=== PATIENT | female | born 1940 | race Native Hawaiian/Other Pacific Islander ===

== ENCOUNTER 2016-12-24 22:16 | Emergency (ER) | payer MEDICARE, MEDICAID ==
--- NOTE | 2016-12-24 23:22 | C.PDOC ---
History Of Present Illness pt had a rash on her forehead for about 1 month. Pt just arrived from [place] yesterday. Possible due to hair dye. Has been putting cortisone cream for the last week or so, worsening the rash Time Seen by Provider: 12/24/16 23:22 Chief Complaint (Nursing): Abnormal Skin Integrity History Per: Patient History/Exam Limitations: no limitations Onset/Duration Of Symptoms: Days (30), Gradual Current Symptoms Are (Timing): Still Present Location Of Injury: Right: Face, Left: Face Quality Of Symptoms: Itching. denies: Painful Severity: Moderate Pain Scale Rating Of: 3 Recent travel outside of the [place]: No Additional History Per: Family Past Medical History Reviewed: Historical Data, Nursing Documentation, Vital Signs Vital Signs: Last Vital Signs Temp 98.3 F 12/24/16 22:21 Pulse 67 12/24/16 22:21 Resp 20 12/24/16 22:21 BP 168/89 H 12/24/16 22:21 Pulse Ox 99 12/24/16 23:36 - Medical History PMH: Arthritis, Asthma, CHF, HTN Family History: States: No Known Family Hx - Social History Hx Alcohol Use: No Hx Substance Use: No - Immunization History Hx Tetanus Toxoid Vaccination: No Hx Influenza Vaccination: No Hx Pneumococcal Vaccination: No Review Of Systems Constitutional: Negative for: Fever, Chills ENT: Positive for: Other (left ear lobe redness, ant tragus as well) Respiratory: Negative for: Shortness of Breath Skin: Positive for: Rash, Other (forehead, left ear) Neurological: Negative for: Weakness, Numbness Psych: Negative for: Anxiety Physical Exam - Physical Exam Appears: Non-toxic, No Acute Distress Skin: Warm, Rash (forehead erythematous rash, as well as left ear lobe and tragus) Head: Normacephalic, No Tenderness Eye(s): bilateral: Normal Inspection Nose: Normal Oral Mucosa: Moist Neck: Supple ED Course And Treatment - Laboratory Results Result Diagrams: 12/25/16 00:36 12/25/16 00:36 O2 Sat by Pulse Oximetry: 99 Pulse Ox Interpretation: Normal Reevaluation Time: 01:11 Reassessment Condition: Improved Disposition Counseled Patient/Family Regarding: Studies Performed, Diagnosis, Need For Followup, Rx Given - Disposition Referrals: Duane Jaquez MD [Staff Provider] - Disposition: HOME/ ROUTINE Disposition Time: 23:22 Condition: FAIR Additional Instructions: Please follow up with Dr Jaquez and referral for dermatologis Prescriptions: Prednisone [Deltasone] 20 mg PO DAILY #5 tablet Instructions: Contact Dermatitis (ED) - Clinical Impression Clinical Impression: Contact dermatitis
[2016-12-24] MEDS ORDERED: DiphenhydrAMINE 50 mg/ml Inj IVP STA (23:30)
[2016-12-25] MEDS ORDERED: DiphenhydrAMINE 50 mg/ml Inj ONE (00:23)
[2016-12-25 00:40] LABS: BASO % 0.7 % (0.0-2.0); EOS # 0.5 K/uL (0.0-0.7); EOS % 9.3 % (0.0-4.0); HEMATOCRIT 37.3 % (34.0-47.0); LYMPH # 1.5 K/uL (1.0-4.3); LYMPH % 28.5 % (20.0-40.0); MEAN CELL VOLUME 96.5 fL (81.0-99.0); MEAN CORPUSCULAR HGB CONC 33.2 g/dL (33.0-37.0); MONO # 0.5 K/uL (0.0-0.8); MONO % 8.8 % (0.0-10.0); WHITE BLOOD COUNT 5.2 K/uL (4.8-10.8)
[2016-12-25 00:50] LABS: POTASSIUM 3.3 mmol/L (3.6-5.2)
[2016-12-25 00:54] LABS: CALCIUM 9.4 mg/dl (8.6-10.4)
[2016-12-25 01:15] LABS: URINE BILIRUBIN NEGATIVE (NEGATIVE); URINE BLOOD NEGATIVE (NEGATIVE); URINE COLOR Straw (YELLOW); URINE GLUCOSE (UA) 1+ mg/dL (Normal); URINE KETONE NEGATIVE (NEGATIVE); URINE LEUKOCYTE ESTERASE NEG Leu/uL (Negative); URINE PROTEIN 1+ mg/dL (NEGATIVE); URINE UROBILINOGEN NORMAL mg/dL (0.2-1.0)
[2016-12-25 01:37] VITALS: BP 178/75; PULSE 71; RESP 18; TEMP 98.4; O2SAT 98
== END 2016-12-25 02:00 | disposition home or self-care (01) ==
LOC: C.ER 22:16
DX: L25.9 Unspecified contact dermatitis, unspecified cause (principal)
CPT/HCPCS: 80048; 81001; 85025; 96374; 96375; 99283; J1200; J2930

== ENCOUNTER 2017-06-14 13:30 | Inpatient (IN) | payer MEDICARE, MEDICAID ==
--- NOTE | 2017-06-14 15:09 | C.PDOC ---
History Of Present Illness 76 yr old female presents to the ER with complaints of 1 month history of SOB and mild chest discomfort. Patient states she saw her PMD Dr. Jaquez who instructed her to come to ER for further evaluation. Currently, patient states the SOB is when she lays flat. Patient denies history of DVT, PE, fever, chills , nausea, vomiting, headache, weakness or numbness. Time Seen by Provider: 06/14/17 14:26 Chief Complaint (Nursing): Shortness Of Breath History Per: Patient History/Exam Limitations: no limitations Onset/Duration Of Symptoms: Days (1 month) Past Medical History Reviewed: Historical Data, Nursing Documentation, Vital Signs Vital Signs: Last Vital Signs Temp 97.6 F 06/14/17 13:46 Pulse 74 06/14/17 13:46 Resp 20 06/14/17 15:01 BP 150/75 06/14/17 13:46 Pulse Ox 96 06/14/17 16:31 - Medical History PMH: Arthritis, Asthma, CHF, HTN Family History: States: No Known Family Hx - Social History Hx Alcohol Use: No Hx Substance Use: No - Immunization History Hx Tetanus Toxoid Vaccination: No Hx Influenza Vaccination: No Hx Pneumococcal Vaccination: No Review Of Systems Except As Marked, All Systems Reviewed And Found Negative. Constitutional: Negative for: Fever, Chills Cardiovascular: Positive for: Other ((+) Mild chest discomfort) Respiratory: Positive for: Shortness of Breath Gastrointestinal: Negative for: Nausea, Vomiting Neurological: Negative for: Weakness, Numbness, Headache Physical Exam - Physical Exam Appears: Non-toxic, No Acute Distress Skin: Normal Color, Warm, Dry, No Rash Head: Atraumatic, Normacephalic Oral Mucosa: Moist Chest: Symmetrical, No Tenderness Cardiovascular: Rhythm Regular, No Murmur Respiratory: Normal Breath Sounds, No Rales, No Rhonchi, No Stridor, No Wheezing Extremity: Normal ROM, No Swelling Neurological/Psych: Oriented x3, Normal Speech, Normal Motor ED Course And Treatment - Laboratory Results Result Diagrams: 06/14/17 15:13 06/14/17 15:13 ECG: Interpreted By Me, Viewed By Me ECG Rhythm: Sinus Rhythm ECG Interpretation: Normal Interpretation Of ECst degree AV block. LBBB. Left axis deviation. Rate From EC (BPM) O2 Sat by Pulse Oximetry: 96 (RA) Pulse Ox Interpretation: Normal - Radiology CXR: Interpreted by Me, Viewed By Me CXR Interpretation: Yes: Other ((+) Blunting of left CPA.) Medical Decision Making Medical Decision Making: PLAN: * CXR * EKG * Troponin * CBC * BNP Disposition Discussed With DrDianne: Duane Jaquez Doctor Will See Patient In The: Hospital Counseled Patient/Family Regarding: Diagnosis - Disposition Disposition: HOSPITALIZED Disposition Time: 16:23 Condition: FAIR Forms: Inveni (Greek) - POA Core Measure Indicators: Chest Pain - Clinical Impression Clinical Impression: Dyspnea, Chest pain - Scribe Statement The provider has reviewed the documentation as recorded by the Dionicioibe [place] Provider Attestation: All medical record entries made by the Dionicioibe were at my direction and personally dictated by me. I have reviewed the chart and agree that the record accurately reflects my personal performance of the history, physical exam, medical decision making, and the department course for this patient. I have also personally directed, reviewed, and agree with the discharge instructions and disposition.
[2017-06-14 15:20] LABS: BASO % 0.4 % (0.0-2.0); EOS # 0.3 K/uL (0.0-0.7); EOS % 3.9 % (0.0-4.0); HEMATOCRIT 38.3 % (34.0-47.0); LYMPH # 1.5 K/uL (1.0-4.3); LYMPH % 21.1 % (20.0-40.0); MEAN CELL VOLUME 95.5 fL (81.0-99.0); MEAN CORPUSCULAR HEMOGLOBIN 32.5 pg (27.0-31.0); MEAN PLATELET VOLUME 9.8 fL (7.2-11.7); MONO # 0.6 K/uL (0.0-0.8); MONO % 8.8 % (0.0-10.0); RED CELL DISTRIBUTION WIDTH 12.8 % (11.5-14.5); WHITE BLOOD COUNT 7.1 K/uL (4.8-10.8)
[2017-06-14 15:38] LABS: BILIRUBIN,TOTAL 0.9 mg/dL (0.2-1.3)
[2017-06-14 15:39] LABS: ALB/GLOB RATIO 1.6 (1.0-2.1); CALCIUM 9.7 mg/dl (8.6-10.4); TOTAL PROTEIN 7.4 g/dL (6.3-8.3)
[2017-06-14 15:50] LABS: TROPONIN I 0.046 ng/mL (0.00-0.120)
--- NOTE | 2017-06-14 16:49 | RAD ---
PROCEDURE: CHEST RADIOGRAPH, 1 VIEW HISTORY: chest pain COMPARISON: None available. FINDINGS: LUNGS: No consolidation. Clear lungs. Possible cystic emphysematous changes bordering the aortic knob PLEURA: No pneumothorax or pleural fluid seen. CARDIOVASCULAR: Minimal cardiomegaly left ventricular enlargement configuration. Calcified and tortuous thoracic aorta -comparison with prior studies recommended OSSEOUS STRUCTURES: Thoracic spondylosis right shoulder arthrosis VISUALIZED UPPER ABDOMEN: Normal. OTHER FINDINGS: None. IMPRESSION: No interval infiltrate or pulmonary venous significant congestion . No pleural effusion or pneumothorax. Cardiomegaly, tortuous/prominent calcified thoracic aorta - the prominence and tortuosity is of unknown chronicity. Direct comparison with prior outside studies is recommended to assess stability. Consider CT chest to evaluate the thoracic aortic if needed.
[2017-06-14] MEDS ORDERED: Home Med 1 UNIT (Atorvastatin [Lipitor] 10 MG) PO SCH (22:00)
[2017-06-15 04:48] LABS: BASO % 0.7 % (0.0-2.0); EOS # 0.4 K/uL (0.0-0.7); EOS % 7.4 % (0.0-4.0); HEMATOCRIT 37.3 % (34.0-47.0); LYMPH # 1.9 K/uL (1.0-4.3); LYMPH % 31.1 % (20.0-40.0); MEAN CELL VOLUME 94.9 fL (81.0-99.0); MEAN CORPUSCULAR HEMOGLOBIN 32.3 pg (27.0-31.0); MEAN PLATELET VOLUME 9.5 fL (7.2-11.7); MONO # 0.5 K/uL (0.0-0.8); MONO % 9.1 % (0.0-10.0); NRBC % 0.1 % (0.0-2.0); RED CELL DISTRIBUTION WIDTH 12.9 % (11.5-14.5)
[2017-06-15 04:55] LABS: POTASSIUM 3.3 mmol/L (3.6-5.2)
[2017-06-15 04:58] LABS: ALB/GLOB RATIO 1.1 (1.0-2.1); BILIRUBIN,TOTAL 0.9 mg/dL (0.2-1.3); TOTAL PROTEIN 7.7 g/dL (6.3-8.3)
[2017-06-15 04:59] LABS: CALCIUM 9.4 mg/dl (8.6-10.4)
--- NOTE | 2017-06-15 08:38 | CP.PCM.HP ---
History of Present Illness - History of Present Illness History of Present Illness: CC: chest pain 76 y/o male with CAD (had (+) stress test in 2016 - treated medically) and HTN. Patient having chest pressure every night x almost 1 month. Patient seen in office but went home. Advise stress test before going to [place]. Patient has chest pressure w/ mild SOB last night - went to ER. Present on Admission - Present on Admission Any Indicators Present on Admission: Yes History of DVT/PE: No History of Uncontrolled Diabetes: No Urinary Catheter: No Decubitus Ulcer Present: No Review of Systems - Review of Systems Systems not reviewed;Unavailable: Acuity of Condition - Constitutional Constitutional: Headache. absent: Fever, Lethargy, Malaise - EENT Eyes: absent: Change in Vision, Floaters, Sees Flashes Nose/Mouth/Throat: absent: Epistaxis, Nasal Trauma, Dysphagia, Mouth Pain - Breasts Breasts: absent: Change in Shape - Cardiovascular Cardiovascular: Chest Pain, Chest Pain at Rest, Palpitations. absent: Claudication, Edema, Leg Edema, Leg Ulcers, Pedal Edema - Respiratory Respiratory: absent: Cough, Hemoptysis, Stridor, Pain on Inspiration - Gastrointestinal Gastrointestinal: absent: Abdominal Pain, Bloating, Cramping, Early Satiety, Hematemesis - Genitourinary Genitourinary: Nocturia. absent: Difficulty Urinating, Dysuria, Urinary Urgency , Freq UTI, Bladder Distension - Reproductive: Female Reproductive:Female: Amenorrhea - Musculoskeletal Musculoskeletal: absent: Abnormal Gait, Atrophy, Back Pain, Limited Range of Motion, Myalgias, Neck Pain - Integumentary Integumentary: absent: Alopecia, Dry Skin, Pruritus, Rash, Swelling Past Patient History - Infectious Disease Hx of Infectious Diseases: None - Past Social History Smoking Status: Never Smoked - CARDIAC Hx Congestive Heart Failure: Yes Hx Hypertension: Yes - PULMONARY Hx Asthma: Yes - MUSCULOSKELETAL/RHEUMATOLOGICAL Hx Arthritis: Yes - PSYCHIATRIC Hx Substance Use: No - ANESTHESIA Hx Anesthesia: No Meds Allergies/Adverse Reactions: Allergies Allergy/AdvReac Type Severity Reaction Status Date / Time No Known Allergies Allergy Unverified 06/14/17 13:48 Physical Exam - Constitutional Appears: No Acute Distress - Head Exam Head Exam: ATRAUMATIC - Eye Exam Eye Exam: Normal appearance - ENT Exam ENT Exam: Mucous Membranes Moist. absent: Normal Exam, Normal External Ear Exam - Neck Exam Neck exam: Positive for: Full Rom. Negative for: Lymphadenopathy, Normal Inspection, Thyromegaly - Respiratory Exam Respiratory Exam: Clear to Auscultation Bilateral. absent: Rales, Rhonchi, Wheezes - Cardiovascular Exam Cardiovascular Exam: REGULAR RHYTHM, +S1, +S2, Systolic Murmur. absent: Gallop , JVD - GI/Abdominal Exam GI & Abdominal Exam: Soft. absent: Tenderness - Back Exam Back exam: absent: CVA tenderness (L) - Neurological Exam Neurological exam: Alert Results - Vital Signs Recent Vital Signs: Last Vital Signs Temp 97.8 F 06/15/17 07:51 Pulse 70 06/15/17 07:51 Resp 20 06/15/17 07:51 BP 147/72 06/15/17 07:51 Pulse Ox 95 06/15/17 07:51 - Labs Result Diagrams: 06/15/17 04:45 06/15/17 04:45 Labs: Laboratory Results - last 24 hr 06/14/17 06/14/17 06/14/17 15:13 15:13 23:20 WBC 7.1 RBC 4.01 Hgb 13.0 Hct 38.3 MCV 95.5 MCH 32.5 H MCHC 34.0 RDW 12.8 Plt Count 132 MPV 9.8 Neut % (Auto) 65.8 Lymph % (Auto) 21.1 [place] % (Auto) 8.8 Eos % (Auto) 3.9 Baso % (Auto) 0.4 Neut # 4.7 Lymph # 1.5 [place] # 0.6 Eos # 0.3 Baso # 0.0 Sodium 137 Potassium 4.0 Chloride 100 Carbon Dioxide 26 Anion Gap 15 BUN 30 H Creatinine 1.8 H Est GFR ( Amer) 33 Est GFR (Non-Af Amer) 27 Random Glucose 87 Calcium 9.7 Total Bilirubin 0.9 AST 40 H ALT 37 Alkaline Phosphatase 78 Total Creatine Kinase 86 CK-MB (Mass) 1.13 Troponin I 0.0460 Troponin I, Quant 0.0490 NT-Pro-B Natriuret Pep 1330 H Total Protein 7.4 Albumin 4.5 Globulin 2.9 Albumin/Globulin Ratio 1.6 06/15/17 06/15/17 06/15/17 04:45 04:45 06:55 WBC 6.0 RBC 3.93 Hgb 12.7 Hct 37.3 MCV 94.9 MCH 32.3 H MCHC 34.0 RDW 12.9 Plt Count 124 L MPV 9.5 Neut % (Auto) 51.7 Lymph % (Auto) 31.1 [place] % (Auto) 9.1 Eos % (Auto) 7.4 H Baso % (Auto) 0.7 Neut # 3.1 Lymph # 1.9 [place] # 0.5 Eos # 0.4 Baso # 0.0 Sodium 138 Potassium 3.3 L Chloride 104 Carbon Dioxide 22 Anion Gap 15 BUN 33 H Creatinine 1.4 H Est GFR ( Amer) 44 Est GFR (Non-Af Amer) 36 Random Glucose 95 Calcium 9.4 Total Bilirubin 0.9 AST 31 ALT 35 Alkaline Phosphatase 71 Total Creatine Kinase 81 CK-MB (Mass) 1.08 Troponin I Troponin I, Quant 0.0450 NT-Pro-B Natriuret Pep Total Protein 7.7 Albumin 4.1 Globulin 3.6 Albumin/Globulin Ratio 1.1 - EKG Data EKG Interpreted by: Myself Rate: Normal (complete ) Assessment & Plan - Assessment and Plan (Free Text) Assessment: Chest pain w/ CAD HTN, Hypokalemia K supplement; check Mg level Control BP cardio eval
[2017-06-15] MEDS ORDERED: Potassium Chloride 20 mEq ER Tab PO SCH (10:00)
[2017-06-15] MEDS: Potassium Chloride 20 mEq ER Tab PO SCH ×2 (10:33→17:52)
--- NOTE | 2017-06-15 13:25 | CT ---
CT chest without IV contrast Indication: Shortness of breath Technique: Contiguous axial images were obtained through the chest without intravenous contrast enhancement. Sagittal and coronal reconstructions were generated and reviewed. This CT exam was performed using 1 or more of the following dose reduction techniques: Automated exposure control, adjustment of the MAA and/or kV according to patient size, and/or use of iterative reconstruction technique. Radiation dose (DLP): 174.16 MGy-cm. Comparison: Chest x-ray performed 06/14/17 Findings: Visualized portions of the inferior thyroid gland appear unremarkable. The mediastinal and hilar vascular structures appear within normal limits. The heart appears within normal limits of size. Dense atherosclerotic calcifications of the aorta. Dense coronary artery calcifications. Multiple tiny nodular opacities several of which appear partially ground-glass noted in addition to regions of the alveolar opacities ; correlate clinically for infectious or inflammatory process. No focal consolidation. No pleural effusion. No pneumothorax. Limited visualization of the noncontrast upper abdomen demonstrates 2.4 cm low-density hepatic lesion, 10 HU consistent with a cyst. Additional too small to characterize hepatic hypodensities. Fatty atrophy of the pancreas. Degenerative changes of the spine. Impression: Multiple tiny nodular opacities (Less than 4 mm) several of which appear partially ground-glass noted in addition to regions of the alveolar opacities ; correlate clinically for infectious or inflammatory process. Recommend short-term follow-up to assess for complete resolution. 2.4 cm low-density hepatic lesion, 10 HU consistent with a cyst. Additional too small to characterize hepatic hypodensities. Fatty atrophy of the pancreas.
[2017-06-15] MEDS: Albuterol-Ipratrop 3 mg / 0.5 (3 ml) UD INH SCH ×2 (14:05→19:16)
--- NOTE | 2017-06-15 15:39 | CP.PCM.CON ---
History of Present Illness - History of Present Illness History of Present Illness: Pulmonology Consult Note for Dr. Nathan's Service Reason for Consult: " shortness of breath" HPI: 76F with PMHx HTN, HLD, Asthma presented to the ED with shortness of breath x 1 month. Patient reports for the past month, she has been having difficulty laying down flat. She feels SOB and as if she is choking. Denied any SOB when ambulating or climbing up stairs. She denies any swelling of her lower extremities. She now sleeps at a 45 degree angle to alleviate her symptoms at night. Patient had a + nuclear stress test last year - which she is being managed for medically. Denied recent travel, sick contacts, fever, chills, headache, chest pain, abdominal pain, n/v/d/c, or urinary symptoms. PMHx: HTN, HLD, Asthma, 2016 + stress test - medically managed PSHx: Denied Meds: As per MAR, confirmed and reviewed All: NKDA SHx: Denied tobacco, ETOH, or illicit drug use FHx: Unremarkable Past Patient History - Past Social History Smoking Status: Never Smoked - CARDIAC Hx Congestive Heart Failure: Yes Hx Hypertension: Yes - PULMONARY Hx Asthma: Yes - MUSCULOSKELETAL/RHEUMATOLOGICAL Hx Arthritis: Yes - PSYCHIATRIC Hx Substance Use: No - ANESTHESIA Hx Anesthesia: No Meds Allergies/Adverse Reactions: Allergies Allergy/AdvReac Type Severity Reaction Status Date / Time No Known Allergies Allergy Unverified 06/14/17 13:48 - Medications Medications: Current Medications Albuterol/Ipratropium (Duoneb 3 Mg/0.5 Mg (3 Ml) Ud) 3 ml INH RQ6 [facility] Amlodipine Besylate (Norvasc) 10 mg PO HS [facility] Last Admin: 06/14/17 22:33 Dose: 10 mg Heparin Sodium (Porcine) (Heparin) 5,000 units SC Q12 VIANCA Last Admin: 06/15/17 10:32 Dose: 5,000 units Losartan Potassium (Cozaar) 50 mg PO DAILY [facility] Last Admin: 06/15/17 10:33 Dose: 50 mg Potassium Chloride (K-Dur 20 Meq Er Tab) 20 meq PO BID VIANCA Stop: 06/18/17 10:01 Last Admin: 06/15/17 10:33 Dose: 20 meq Rosuvastatin Calcium (Crestor) 5 mg PO HS [facility] Last Admin: 06/14/17 22:33 Dose: 5 mg Physical Exam - Constitutional Appears: No Acute Distress - Head Exam Head Exam: NORMAL INSPECTION, NORMOCEPHALIC - Eye Exam Eye Exam: EOMI, Normal appearance, PERRL Pupil Exam: NORMAL ACCOMODATION - ENT Exam ENT Exam: Mucous Membranes Moist - Neck Exam Neck exam: Positive for: Normal Inspection - Respiratory Exam Respiratory Exam: Rales (L> R) - Cardiovascular Exam Cardiovascular Exam: REGULAR RHYTHM - GI/Abdominal Exam GI & Abdominal Exam: Normal Bowel Sounds, Soft. absent: Distended, Tenderness - Extremities Exam Extremities exam: Positive for: normal inspection, pedal pulses present. Negative for: pedal edema, tenderness - Neurological Exam Neurological exam: Alert, CN II-XII Intact, Oriented x3 Results - Vital Signs Recent Vital Signs: Last Vital Signs Temp 97.8 F 06/15/17 13:32 Pulse 69 06/15/17 13:32 Resp 18 06/15/17 13:32 BP 162/52 H 06/15/17 13:53 Pulse Ox 98 06/15/17 13:32 - Labs Result Diagrams: 06/15/17 04:45 06/15/17 04:45 Labs: Laboratory Results - last 24 hr 06/14/17 06/14/17 06/14/17 15:13 15:13 23:20 WBC 7.1 RBC 4.01 Hgb 13.0 Hct 38.3 MCV 95.5 MCH 32.5 H MCHC 34.0 RDW 12.8 Plt Count 132 MPV 9.8 Neut % (Auto) 65.8 Lymph % (Auto) 21.1 [place] % (Auto) 8.8 Eos % (Auto) 3.9 Baso % (Auto) 0.4 Neut # 4.7 Lymph # 1.5 [place] # 0.6 Eos # 0.3 Baso # 0.0 D-Dimer, Quantitative Sodium 137 Potassium 4.0 Chloride 100 Carbon Dioxide 26 Anion Gap 15 BUN 30 H Creatinine 1.8 H Est GFR ( Amer) 33 Est GFR (Non-Af Amer) 27 Random Glucose 87 Calcium 9.7 Magnesium Total Bilirubin 0.9 AST 40 H ALT 37 Alkaline Phosphatase 78 Total Creatine Kinase 86 CK-MB (Mass) 1.13 Troponin I 0.0460 Troponin I, Quant 0.0490 NT-Pro-B Natriuret Pep 1330 H Total Protein 7.4 Albumin 4.5 Globulin 2.9 Albumin/Globulin Ratio 1.6 06/15/17 06/15/17 06/15/17 04:45 04:45 06:55 WBC 6.0 RBC 3.93 Hgb 12.7 Hct 37.3 MCV 94.9 MCH 32.3 H MCHC 34.0 RDW 12.9 Plt Count 124 L MPV 9.5 Neut % (Auto) 51.7 Lymph % (Auto) 31.1 [place] % (Auto) 9.1 Eos % (Auto) 7.4 H Baso % (Auto) 0.7 Neut # 3.1 Lymph # 1.9 [place] # 0.5 Eos # 0.4 Baso # 0.0 D-Dimer, Quantitative Sodium 138 Potassium 3.3 L Chloride 104 Carbon Dioxide 22 Anion Gap 15 BUN 33 H Creatinine 1.4 H Est GFR ( Amer) 44 Est GFR (Non-Af Amer) 36 Random Glucose 95 Calcium 9.4 Magnesium Total Bilirubin 0.9 AST 31 ALT 35 Alkaline Phosphatase 71 Total Creatine Kinase 81 CK-MB (Mass) 1.08 Troponin I Troponin I, Quant 0.0450 NT-Pro-B Natriuret Pep Total Protein 7.7 Albumin 4.1 Globulin 3.6 Albumin/Globulin Ratio 1.1 06/15/17 06/15/17 09:40 12:27 WBC RBC Hgb Hct MCV MCH MCHC RDW Plt Count MPV Neut % (Auto) Lymph % (Auto) [place] % (Auto) Eos % (Auto) Baso % (Auto) Neut # Lymph # [place] # Eos # Baso # D-Dimer, Quantitative 499 H Sodium Potassium Chloride Carbon Dioxide Anion Gap BUN Creatinine Est GFR ( Amer) Est GFR (Non-Af Amer) Random Glucose Calcium Magnesium 1.8 Total Bilirubin AST ALT Alkaline Phosphatase Total Creatine Kinase CK-MB (Mass) Troponin I Troponin I, Quant NT-Pro-B Natriuret Pep Total Protein Albumin Globulin Albumin/Globulin Ratio Assessment & Plan - Assessment and Plan (Free Text) Plan: Dyspnea Most likely Secondary to New Onset CHF No JVD, no +S3 noted, BL lower extremity swelling BNP:1330 CXR: No interval infiltrate or pulmonary venous significant congestion. No pleural effusion or pneumothorax. Cardiomegaly, tortuous/prominent calcified thoracic aorta - the prominence and tortuosity is of unknown chronicity. Direct comparison with prior outside studies is recommended to assess stability. Consider CT chest to evaluate the thoracic aortic if needed. Chest CT w/o: Multiple tiny nodular opacities (Less than 4 mm) several of which appear partially ground-glass noted in addition to regions of the alveolar opacities ; correlate clinically for infectious or inflammatory process. Recommend short-term follow-up to assess for complete resolution. 2.4 cm low- density hepatic lesion, 10 HU consistent with a cyst. Additional too small to characterize hepatic hypodensities. Fatty atrophy of the pancreas. F/U ECHO, procal, mycoplasma, rapid flu, legionella, strep pneumo Duonebs Elevated D Dimer D-dimer- 500 Not tachycardic EKst degree AV block. LBBB. Left axis deviation During to renal function: VQ Scan ordered to r/o PE CHRISTOPHE Baseline BUN/CRE: 30/1.2 with GFR 43 On admission BUN/CRE; 33/1.4 GFR 36 S/P lasix 40mg IVP x2 Hx HTN Hx HLD Hx Asthma DW Solo Cordero DO, PGY-1
--- NOTE | 2017-06-15 17:30 | NM ---
COMPARISON: Comparison is made to previous same-day CT of the chest without contrast TECHNIQUE: 7.8 mCi technetium 99-m Xe-133 Gas. 3.8 mCI technetium 99-m MAA administered intravenously. FINDINGS: VENTILATION COMPONENT: Heterogeneous ventilation seen especially at the upper lobes. No evidence of significant retention of the radiotracer in the lungs. PERFUSION COMPONENT: Heterogeneous profusion with small nonsegmental foci of matching perfusion defects at the upper lobes. IMPRESSION: Lowprobability ventilation perfusion scan for pulmonary embolism.
--- NOTE | 2017-06-15 22:35 | CP.PCM.CON ---
History of Present Illness - History of Present Illness History of Present Illness: CC: chest pain HPI: 76 yr old female presents to the ER with complaints of 1 month history of SOB and mild chest discomfort worst at night when lying in bed. Chest pain was described as burning type in nature. Patient states she saw her PMD who instructed her to come to ER for further evaluation. EKG revealed sinus rhythm w/ LBBB. Review of Systems - Constitutional Constitutional: Weakness - EENT Eyes: absent: Change in Vision Nose/Mouth/Throat: absent: Epistaxis, Nasal Discharge - Cardiovascular Cardiovascular: Chest Pain, Dyspnea on Exertion. absent: Leg Edema, Pedal Edema - Respiratory Respiratory: Dyspnea on Exertion. absent: Chest Congestion, Pain with Coughing - Gastrointestinal Gastrointestinal: absent: Constipation, Diarrhea - Genitourinary Genitourinary: absent: Difficulty Urinating, Urinary Incontinence - Musculoskeletal Musculoskeletal: absent: Abnormal Gait, Muscle Weakness - Neurological Neurological: absent: Dizziness, Frequent Falls - Endocrine Endocrine: absent: Deepening of Voice Past Patient History - Infectious Disease Hx of Infectious Diseases: None - Past Medical History & Family History Past Medical History?: Yes - Past Social History Smoking Status: Never Smoked - CARDIAC Hx Congestive Heart Failure: Yes Hx Hypertension: Yes - PULMONARY Hx Asthma: Yes - NEUROLOGICAL Hx Neurological Disorder: No - HEENT Hx Cataracts: Yes (both eyes ) - RENAL Hx Chronic Kidney Disease: No - ENDOCRINE/METABOLIC Hx Endocrine Disorders: No - HEMATOLOGICAL/ONCOLOGICAL Hx Blood Disorders: No - INTEGUMENTARY Hx Dermatological Problems: No - MUSCULOSKELETAL/RHEUMATOLOGICAL Hx Arthritis: Yes - GASTROINTESTINAL Hx Constipation: Yes (2days) - GENITOURINARY/GYNECOLOGICAL Hx Genitourinary Disorders: No - PSYCHIATRIC Hx Substance Use: No - SURGICAL HISTORY Other/Comment: right leg Vein stripping years ago - ANESTHESIA Hx Anesthesia: No Meds Allergies/Adverse Reactions: Allergies Allergy/AdvReac Type Severity Reaction Status Date / Time No Known Allergies Allergy Unverified 06/14/17 13:48 - Medications Medications: Current Medications Albuterol/Ipratropium (Duoneb 3 Mg/0.5 Mg (3 Ml) Ud) 3 ml INH RQ6 [facility] Last Admin: 06/15/17 19:16 Dose: 3 ml Amlodipine Besylate (Norvasc) 10 mg PO HS [facility] Last Admin: 06/15/17 21:23 Dose: 10 mg Clopidogrel Bisulfate (Plavix) 75 mg PO DAILY [facility] Heparin Sodium (Porcine) (Heparin) 5,000 units SC Q12 [facility] Last Admin: 06/15/17 21:24 Dose: 5,000 units Losartan Potassium (Cozaar) 50 mg PO DAILY [facility] Last Admin: 06/15/17 10:33 Dose: 50 mg Potassium Chloride (K-Dur 20 Meq Er Tab) 20 meq PO BID [facility] Stop: 06/18/17 10:01 Last Admin: 06/15/17 17:52 Dose: 20 meq Rosuvastatin Calcium (Crestor) 5 mg PO HS [facility] Last Admin: 06/15/17 21:23 Dose: 5 mg Physical Exam - Head Exam Head Exam: NORMAL INSPECTION - Eye Exam Eye Exam: Scleral icterus - ENT Exam ENT Exam: Mucous Membranes Moist - Neck Exam Neck exam: Positive for: Full Rom, Lymphadenopathy - Respiratory Exam Respiratory Exam: Decreased Breath Sounds, NORMAL BREATHING PATTERN - Cardiovascular Exam Cardiovascular Exam: REGULAR RHYTHM - GI/Abdominal Exam GI & Abdominal Exam: Normal Bowel Sounds, Soft. absent: Tenderness - Exam Speculum exam: Erythema - Extremities Exam Extremities exam: Positive for: calf tenderness, pedal edema - Neurological Exam Neurological exam: Alert, CN II-XII Intact Results - Vital Signs Recent Vital Signs: Last Vital Signs Temp 97.8 F 06/15/17 13:32 Pulse 80 06/15/17 19:21 Resp 18 06/15/17 15:17 BP 162/52 H 06/15/17 13:53 Pulse Ox 98 06/15/17 13:32 - Labs Result Diagrams: 06/15/17 04:45 06/15/17 04:45 Labs: Laboratory Results - last 24 hr 06/14/17 06/15/17 06/15/17 23:20 04:45 04:45 WBC 6.0 RBC 3.93 Hgb 12.7 Hct 37.3 MCV 94.9 MCH 32.3 H MCHC 34.0 RDW 12.9 Plt Count 124 L MPV 9.5 Neut % (Auto) 51.7 Lymph % (Auto) 31.1 [place] % (Auto) 9.1 Eos % (Auto) 7.4 H Baso % (Auto) 0.7 Neut # 3.1 Lymph # 1.9 [place] # 0.5 Eos # 0.4 Baso # 0.0 D-Dimer, Quantitative Sodium 138 Potassium 3.3 L Chloride 104 Carbon Dioxide 22 Anion Gap 15 BUN 33 H Creatinine 1.4 H Est GFR ( Amer) 44 Est GFR (Non-Af Amer) 36 Random Glucose 95 Calcium 9.4 Magnesium Total Bilirubin 0.9 AST 31 ALT 35 Alkaline Phosphatase 71 Total Creatine Kinase 86 CK-MB (Mass) 1.13 Troponin I, Quant 0.0490 Total Protein 7.7 Albumin 4.1 Globulin 3.6 Albumin/Globulin Ratio 1.1 06/15/17 06/15/17 06/15/17 06:55 09:40 12:27 WBC RBC Hgb Hct MCV MCH MCHC RDW Plt Count MPV Neut % (Auto) Lymph % (Auto) [place] % (Auto) Eos % (Auto) Baso % (Auto) Neut # Lymph # [place] # Eos # Baso # D-Dimer, Quantitative 499 H Sodium Potassium Chloride Carbon Dioxide Anion Gap BUN Creatinine Est GFR ( Amer) Est GFR (Non-Af Amer) Random Glucose Calcium Magnesium 1.8 Total Bilirubin AST ALT Alkaline Phosphatase Total Creatine Kinase 81 CK-MB (Mass) 1.08 Troponin I, Quant 0.0450 Total Protein Albumin Globulin Albumin/Globulin Ratio Assessment & Plan - Assessment and Plan (Free Text) Assessment: Chest pain? DDx : ACS GERD HTN Renal insufficiency Low K+ Plan: Monitor and correct lytes Consider cath Agree w/ meds
[2017-06-16] MEDS: Albuterol-Ipratrop 3 mg / 0.5 (3 ml) UD INH SCH ×4 (01:06→19:48)
--- NOTE | 2017-06-16 10:14 | CARD ---
APPROVED REPORT EKG Measurement Heart [id number] <Conclusion> Sinus rhythm with 1st degree AV block Left axis deviation Left bundle branch block Abnormal ECG
[2017-06-16] MEDS: Potassium Chloride 20 mEq ER Tab PO SCH ×2 (11:02→18:45)
[2017-06-16] MEDS: Ranolazine 500 mg Extended Release Tablets PO SCH ×2 (11:02→18:45)
[2017-06-16] MEDS: Metoprolol Succinate 25 mg XL Tab PO SCH (11:02)
--- NOTE | 2017-06-16 14:55 | CP.PCM.PN ---
Subjective - Date & Time of Evaluation Date of Evaluation: 06/16/17 Time of Evaluation: 14:52 - Subjective Subjective: S: feels better. No SOB, chestpain, fever. Objective - Vital Signs/Intake and Output Vital Signs (last 24 hours): Temp Pulse Resp BP Pulse Ox 97.5 F L 72 20 147/76 96 06/16/17 07:25 06/16/17 09:00 06/16/17 07:25 06/16/17 07:25 06/16/17 07:25 - Medications Medications: Current Medications Albuterol/Ipratropium (Duoneb 3 Mg/0.5 Mg (3 Ml) Ud) 3 ml INH RQ6 [facility] Last Admin: 06/16/17 13:05 Dose: 3 ml Aspirin (Ecotrin) 81 mg PO DAILY [facility] Last Admin: 06/16/17 11:02 Dose: 81 mg Clopidogrel Bisulfate (Plavix) 75 mg PO DAILY [facility] Last Admin: 06/16/17 11:02 Dose: 75 mg Heparin Sodium (Porcine) (Heparin) 5,000 units SC Q12 [facility] Last Admin: 06/16/17 11:03 Dose: 5,000 units Losartan Potassium (Cozaar) 50 mg PO DAILY [facility] Last Admin: 06/16/17 11:03 Dose: 50 mg Metoprolol Succinate (Toprol Xl) 25 mg PO DAILY [facility] Last Admin: 06/16/17 11:02 Dose: 25 mg Potassium Chloride (K-Dur 20 Meq Er Tab) 20 meq PO BID [facility] Stop: 06/18/17 10:01 Last Admin: 06/16/17 11:02 Dose: 20 meq Ranolazine (Ranexa) 500 mg PO BID [facility] Last Admin: 06/16/17 11:02 Dose: 500 mg Rosuvastatin Calcium (Crestor) 5 mg PO HS [facility] Last Admin: 06/15/17 21:23 Dose: 5 mg - Labs Labs: 06/15/17 04:45 06/15/17 04:45 - Constitutional Appears: No Acute Distress - Head Exam Head Exam: NORMOCEPHALIC - Eye Exam Eye Exam: Normal appearance - ENT Exam ENT Exam: Normal Exam - Neck Exam Neck Exam: Normal Inspection - Respiratory Exam Respiratory Exam: NORMAL BREATHING PATTERN - Cardiovascular Exam Cardiovascular Exam: REGULAR RHYTHM - GI/Abdominal Exam GI & Abdominal Exam: Soft - Rectal Exam Rectal Exam: Deferred - Extremities Exam Extremities Exam: Normal Inspection Assessment and Plan (1) CHF (congestive heart failure) Status: Acute (2) HTN (hypertension) Assessment & Plan: A/P: Continue medications. Appreciate Dr. Nathan and Mer notes. VQ scan low probability Status: Acute
--- NOTE | 2017-06-16 16:25 | CARD ---
APPROVED REPORT EXAM: Two-dimensional and M-mode echocardiogram with Doppler and color Doppler. Other Information Quality : GoodRhythm : INDICATION Dyspnea Congestive Heart Failure COPD 2D DIMENSIONS IVSd1.7 (0.7-1.1cm)LVDd3.7 (3.9-5.9cm) PWd1.4 (0.7-1.1cm)LVDs2.6 (2.5-4.0cm) FS (%) 31.3 %LVEF (%)59.9 (>50%) M-Mode DIMENSIONS Left Atrium (MM)2.88 (2.5-4.0cm)Aortic Root3.63 (2.2-3.7cm) Aortic Cusp Exc.1.88 (1.5-2.0cm) Aortic Valve AI P 1/2 [id number] Mitral Valve E/A ratio0.0 TDI E/Lateral E'0.0E/Medial E'0.0 Tricuspid Valve TR Peak [id number]/sTR Peak Gr.[id number] LEFT VENTRICLE The left ventricle is normal size. There is mild to moderate concentric left ventricular hypertrophy. Left ventricle systolic function is normal. The Ejection Fraction is 55-60%. There is normal LV segmental wall motion. Tissue Doppler imaging reveals abnormal left ventricular diastolic dysfunction. No left ventricle thrombus noted on this study. RIGHT VENTRICLE The right ventricle is normal size. There is normal right ventricular wall thickness. The right ventricular systolic function is normal. ATRIA The left atrium size is normal. The right atrium size is normal. The interatrial septum is intact with no evidence for an atrial septal defect. AORTIC VALVE The aortic valve is normal in structure. There is moderate aortic regurgitation. There is no aortic valvular stenosis. There is no aortic valvular vegetation. MITRAL VALVE The mitral valve is normal in structure. There is no evidence of mitral valve prolapse. There is no mitral valve stenosis. Mitral regurgitation is trace to mild. TRICUSPID VALVE The tricuspid valve is normal in structure. There is trace tricuspid regurgitation. Right ventricular systolic pressure is estimated at less than 30 mmHg. There is no pulmonary hypertension. PULMONIC VALVE The pulmonic valve is not well visualized. There is mild to moderate pulmonic valvular regurgitation. GREAT VESSELS The aortic root is normal in size. PERICARDIAL EFFUSION There is no significant pericardial effusion. <Conclusion> Left ventricle systolic function is normal. The Ejection Fraction is 55-60%. Diastolic dysfunction. Hypertensive heart disease. There is moderate aortic regurgitation. Mitral regurgitation is trace to mild. There is trace tricuspid regurgitation. There is no pulmonary hypertension. There is mild to moderate pulmonic valvular regurgitation.
[2017-06-16 18:04] LABS: PROCALCITONIN SERUM 0.08 NG/ML (0.19-0.49)
[2017-06-16 18:18] LABS: LEGIONELLA AG URINE NEGATIVE (NEGATIVE)
[2017-06-17] MEDS: Albuterol-Ipratrop 3 mg / 0.5 (3 ml) UD INH SCH ×4 (01:24→19:35)
[2017-06-17] MEDS: Metoprolol Succinate 25 mg XL Tab PO SCH (09:12)
[2017-06-17] MEDS: Potassium Chloride 20 mEq ER Tab PO SCH ×2 (09:13→18:00)
[2017-06-17] MEDS: Ranolazine 500 mg Extended Release Tablets PO SCH ×2 (09:13→18:00)
--- NOTE | 2017-06-17 14:23 | CP.PCM.PN ---
Objective - Vital Signs/Intake and Output Vital Signs (last 24 hours): Temp Pulse Resp BP Pulse Ox 97.7 F 61 18 129/60 98 06/17/17 07:30 06/17/17 07:30 06/17/17 07:30 06/17/17 07:30 06/17/17 07:30 - Medications Medications: Current Medications Albuterol/Ipratropium (Duoneb 3 Mg/0.5 Mg (3 Ml) Ud) 3 ml INH RQ6 [facility] Last Admin: 06/17/17 13:52 Dose: 3 ml Aspirin (Ecotrin) 81 mg PO DAILY [facility] Last Admin: 06/17/17 09:13 Dose: 81 mg Clopidogrel Bisulfate (Plavix) 75 mg PO DAILY [facility] Last Admin: 06/17/17 09:12 Dose: 75 mg Heparin Sodium (Porcine) (Heparin) 5,000 units SC Q12 [facility] Last Admin: 06/17/17 09:13 Dose: 5,000 units Losartan Potassium (Cozaar) 50 mg PO DAILY [facility] Last Admin: 06/17/17 09:12 Dose: 50 mg Metoprolol Succinate (Toprol Xl) 25 mg PO DAILY [facility] Last Admin: 06/17/17 09:12 Dose: 25 mg Potassium Chloride (K-Dur 20 Meq Er Tab) 20 meq PO BID [facility] Stop: 06/18/17 10:01 Last Admin: 06/17/17 09:13 Dose: 20 meq Ranolazine (Ranexa) 500 mg PO BID [facility] Last Admin: 06/17/17 09:13 Dose: 500 mg Rosuvastatin Calcium (Crestor) 5 mg PO HS [facility] Last Admin: 06/16/17 21:32 Dose: 5 mg - Labs Labs: 06/15/17 04:45 06/15/17 04:45
[2017-06-17 17:11] VITALS: RESP 20
--- NOTE | 2017-06-17 20:09 | CP.PCM.PN ---
Subjective - Date & Time of Evaluation Date of Evaluation: 06/16/17 Time of Evaluation: 07:45 - Subjective Subjective: less atypical chest discomfort mild sob renal trops Objective - Vital Signs/Intake and Output Vital Signs (last 24 hours): Temp Pulse Resp BP Pulse Ox 99.1 F 60 20 155/68 H 97 06/17/17 15:20 06/17/17 16:00 06/17/17 15:20 06/17/17 15:20 06/17/17 15:20 Intake and Output: 06/17/17 06/18/17 18:59 06:59 Intake Total 600 Balance 600 - Medications Medications: Current Medications Albuterol/Ipratropium (Duoneb 3 Mg/0.5 Mg (3 Ml) Ud) 3 ml INH RQ6 [facility] Last Admin: 06/17/17 19:35 Dose: 3 ml Aspirin (Ecotrin) 81 mg PO DAILY [facility] Last Admin: 06/17/17 09:13 Dose: 81 mg Clopidogrel Bisulfate (Plavix) 75 mg PO DAILY [facility] Last Admin: 06/17/17 09:12 Dose: 75 mg Heparin Sodium (Porcine) (Heparin) 5,000 units SC Q12 [facility] Last Admin: 06/17/17 09:13 Dose: 5,000 units Losartan Potassium (Cozaar) 50 mg PO DAILY [facility] Last Admin: 06/17/17 09:12 Dose: 50 mg Metoprolol Succinate (Toprol Xl) 25 mg PO DAILY [facility] Last Admin: 06/17/17 09:12 Dose: 25 mg Potassium Chloride (K-Dur 20 Meq Er Tab) 20 meq PO BID [facility] Stop: 06/18/17 10:01 Last Admin: 06/17/17 18:00 Dose: 20 meq Ranolazine (Ranexa) 500 mg PO BID [facility] Last Admin: 06/17/17 18:00 Dose: 500 mg Rosuvastatin Calcium (Crestor) 5 mg PO HS [facility] Last Admin: 06/16/17 21:32 Dose: 5 mg - Labs Labs: 06/15/17 04:45 06/15/17 04:45 - Constitutional Appears: Non-toxic - Head Exam Head Exam: NORMAL INSPECTION - Eye Exam Eye Exam: absent: Scleral icterus - ENT Exam ENT Exam: Mucous Membranes Moist - Neck Exam Neck Exam: Full ROM - Respiratory Exam Respiratory Exam: NORMAL BREATHING PATTERN - Cardiovascular Exam Cardiovascular Exam: REGULAR RHYTHM - GI/Abdominal Exam GI & Abdominal Exam: Soft, Tenderness - Extremities Exam Extremities Exam: absent: Calf Tenderness, Pedal Edema - Neurological Exam Neurological Exam: Alert, CN II-XII Intact, Oriented x3 Assessment and Plan - Assessment and Plan (Free Text) Assessment: ACS Renal insufficiency Plan: Cont meds will schedule for lexiscan stress test
--- NOTE | 2017-06-17 20:19 | CP.PCM.PN ---
Subjective - Date & Time of Evaluation Date of Evaluation: 06/17/17 Time of Evaluation: 11:00 - Subjective Subjective: no chest pain no sob Objective - Vital Signs/Intake and Output Vital Signs (last 24 hours): Temp Pulse Resp BP Pulse Ox 99.1 F 60 20 155/68 H 97 06/17/17 15:20 06/17/17 16:00 06/17/17 15:20 06/17/17 15:20 06/17/17 15:20 Intake and Output: 06/17/17 06/18/17 18:59 06:59 Intake Total 600 Balance 600 - Medications Medications: Current Medications Albuterol/Ipratropium (Duoneb 3 Mg/0.5 Mg (3 Ml) Ud) 3 ml INH RQ6 [facility] Last Admin: 06/17/17 19:35 Dose: 3 ml Aspirin (Ecotrin) 81 mg PO DAILY [facility] Last Admin: 06/17/17 09:13 Dose: 81 mg Clopidogrel Bisulfate (Plavix) 75 mg PO DAILY [facility] Last Admin: 06/17/17 09:12 Dose: 75 mg Heparin Sodium (Porcine) (Heparin) 5,000 units SC Q12 [facility] Last Admin: 06/17/17 09:13 Dose: 5,000 units Losartan Potassium (Cozaar) 50 mg PO DAILY [facility] Last Admin: 06/17/17 09:12 Dose: 50 mg Metoprolol Succinate (Toprol Xl) 25 mg PO DAILY [facility] Last Admin: 06/17/17 09:12 Dose: 25 mg Potassium Chloride (K-Dur 20 Meq Er Tab) 20 meq PO BID [facility] Stop: 06/18/17 10:01 Last Admin: 06/17/17 18:00 Dose: 20 meq Ranolazine (Ranexa) 500 mg PO BID [facility] Last Admin: 06/17/17 18:00 Dose: 500 mg Rosuvastatin Calcium (Crestor) 5 mg PO HS [facility] Last Admin: 06/16/17 21:32 Dose: 5 mg - Labs Labs: 06/15/17 04:45 06/15/17 04:45 - Constitutional Appears: Non-toxic - Head Exam Head Exam: NORMAL INSPECTION - Eye Exam Eye Exam: Scleral icterus - ENT Exam ENT Exam: Mucous Membranes Moist - Neck Exam Neck Exam: Full ROM - Respiratory Exam Respiratory Exam: NORMAL BREATHING PATTERN - Cardiovascular Exam Cardiovascular Exam: REGULAR RHYTHM - GI/Abdominal Exam GI & Abdominal Exam: Normal Bowel Sounds - Extremities Exam Extremities Exam: Calf Tenderness. absent: Pedal Edema Assessment and Plan - Assessment and Plan (Free Text) Assessment: Chest pain - r/o CAD Renal insufficiency Plan: Lexiscan Stress test in AM
[2017-06-18] MEDS: Albuterol-Ipratrop 3 mg / 0.5 (3 ml) UD INH SCH ×4 (01:13→19:18)
[2017-06-18] MEDS ORDERED: Aminophylline 25 mg/ml Inj ONE (08:43)
--- NOTE | 2017-06-18 09:46 | CP.PCM.PN ---
<Winifred Banda - Last Filed: 06/18/17 11:45> Subjective - Date & Time of Evaluation Date of Evaluation: 06/18/17 Time of Evaluation: 09:00 - Subjective Subjective: Pulmonology Note for Dr. Nathan's Service Patient seen and examined at bedside this morning. Patient is NPO for stress test today. No acute complaints. Denied fever, chills, headache, chest pain, SOB , cough abdominal pain, n/v/d/c, or urinary symptoms. Objective - Vital Signs/Intake and Output Vital Signs (last 24 hours): Temp Pulse Resp BP Pulse Ox 98 F 64 20 163/84 H 97 06/18/17 08:00 06/18/17 08:00 06/18/17 08:00 06/18/17 08:00 06/18/17 08:00 - Medications Medications: Current Medications Albuterol/Ipratropium (Duoneb 3 Mg/0.5 Mg (3 Ml) Ud) 3 ml INH RQ6 [facility] Last Admin: 06/18/17 07:12 Dose: Not Given Aspirin (Ecotrin) 81 mg PO DAILY [facility] Last Admin: 06/17/17 09:13 Dose: 81 mg Clopidogrel Bisulfate (Plavix) 75 mg PO DAILY [facility] Last Admin: 06/17/17 09:12 Dose: 75 mg Losartan Potassium (Cozaar) 50 mg PO DAILY [facility] Last Admin: 06/17/17 09:12 Dose: 50 mg Metoprolol Succinate (Toprol Xl) 25 mg PO DAILY [facility] Last Admin: 06/17/17 09:12 Dose: 25 mg Potassium Chloride (K-Dur 20 Meq Er Tab) 20 meq PO BID [facility] Stop: 06/18/17 10:01 Last Admin: 06/17/17 18:00 Dose: 20 meq Ranolazine (Ranexa) 500 mg PO BID [facility] Last Admin: 06/17/17 18:00 Dose: 500 mg Rosuvastatin Calcium (Crestor) 5 mg PO HS [facility] Last Admin: 06/17/17 22:36 Dose: 5 mg - Labs Labs: 06/15/17 04:45 06/15/17 04:45 - Additional Findings Additional findings: - Constitutional Appears: No Acute Distress - Head Exam Head Exam: NORMAL INSPECTION, NORMOCEPHALIC - Eye Exam Eye Exam: EOMI, Normal appearance, PERRL Pupil Exam: NORMAL ACCOMODATION - ENT Exam ENT Exam: Mucous Membranes Moist - Neck Exam Neck exam: Positive for: Normal Inspection - Respiratory Exam Respiratory Exam: No wheezing, rhonci, or rales - Cardiovascular Exam Cardiovascular Exam: REGULAR RHYTHM - GI/Abdominal Exam GI & Abdominal Exam: Normal Bowel Sounds, Soft. absent: Distended, Tenderness - Extremities Exam Extremities exam: Positive for: normal inspection, pedal pulses present. Negative for: pedal edema, tenderness - Neurological Exam Neurological exam: Alert, CN II-XII Intact, Oriented x3 Assessment and Plan - Assessment and Plan (Free Text) Plan: Dyspnea Most likely Secondary to New Onset Diastolic CHF No JVD, no +S3 noted, BL lower extremity swelling [id number] Imaging: CXR: No interval infiltrate or pulmonary venous significant congestion. No pleural effusion or pneumothorax. Cardiomegaly, tortuous/prominent calcified thoracic aorta - the prominence and tortuosity is of unknown chronicity. Direct comparison with prior outside studies is recommended to assess stability. Consider CT chest to evaluate the thoracic aortic if needed. Chest CT w/o: Multiple tiny nodular opacities (Less than 4 mm) several of which appear partially ground-glass noted in addition to regions of the alveolar opacities ; correlate clinically for infectious or inflammatory process. Recommend short-term follow-up to assess for complete resolution. 2.4 cm low-density hepatic lesion, 10 HU consistent with a cyst. Additional too small to characterize hepatic hypodensities. Fatty atrophy of the pancreas. Labs: Procal - low, rapid flu - negative, legionella - negative, strep pneumo and mycoplasma - pending Medications: Duone ECHO: LVEF 60%, Diastolic Dysfunction, HTN heart disease, Moderate AR, moderate Pulmonic Valvular regurgitation. Nuclear Stress Test today with Dr. Del Angel- NPO Elevated D Dimer D-dimer- 500 Not tachycardic EKst degree AV block. LBBB. Left axis deviation Due to renal function: VQ Scan - low probability of PE CHRISTOPHE Hx HTN Hx HLD Hx Asthma DW Solo Cordero DO, PGY-1 <Nathanael Nathan - Last Filed: 06/18/17 17:56> Subjective - Date & Time of Evaluation Time of Evaluation: 11:00 Objective - Vital Signs/Intake and Output Vital Signs (last 24 hours): Temp Pulse Resp BP Pulse Ox 96.0 F L 69 20 156/73 H 97 06/18/17 16:30 06/18/17 16:30 06/18/17 16:30 06/18/17 16:30 06/18/17 16:30 Intake and Output: 06/18/17 06/18/17 06:59 18:59 Intake Total 480 Balance 480 - Medications Medications: Current Medications Albuterol/Ipratropium (Duoneb 3 Mg/0.5 Mg (3 Ml) Ud) 3 ml INH RQ6 [facility] Last Admin: 06/18/17 13:21 Dose: 3 ml Aspirin (Ecotrin) 81 mg PO DAILY [facility] Last Admin: 06/18/17 10:59 Dose: 81 mg Clopidogrel Bisulfate (Plavix) 75 mg PO DAILY [facility] Last Admin: 06/18/17 10:59 Dose: 75 mg Losartan Potassium (Cozaar) 50 mg PO DAILY [facility] Last Admin: 06/18/17 10:59 Dose: 50 mg Metoprolol Succinate (Toprol Xl) 25 mg PO DAILY [facility] Last Admin: 06/18/17 10:59 Dose: 25 mg Ranolazine (Ranexa) 500 mg PO BID [facility] Last Admin: 06/18/17 17:22 Dose: 500 mg Rosuvastatin Calcium (Crestor) 5 mg PO HS [facility] Last Admin: 06/17/17 22:36 Dose: 5 mg - Labs Labs: 06/15/17 04:45 06/15/17 04:45 Attending/Attestation - Attestation I have personally seen and examined this patient.: Yes I have fully participated in the care of the patient.: Yes I have reviewed all pertinent clinical information, including history, physical exam and plan: Yes Notes (Text): 06/18/17 17:56 patient seen and examined. Sitting comfortably in no acute distrss Had stress test done breathing better Most likely CHF Continue current workup
[2017-06-18] MEDS: Metoprolol Succinate 25 mg XL Tab PO SCH (10:59)
[2017-06-18] MEDS: Potassium Chloride 20 mEq ER Tab PO SCH (10:59)
[2017-06-18] MEDS: Ranolazine 500 mg Extended Release Tablets PO SCH ×2 (10:59→17:22)
--- NOTE | 2017-06-18 21:41 | CARD ---
APPROVED REPORT EKG Measurement Heart [id number] <Conclusion> Normal sinus rhythm Left axis deviation Left bundle branch block Abnormal ECG
--- NOTE | 2017-06-18 23:15 | CARD ---
APPROVED REPORT Protocol: LEXISCAN Test Type: LEXISCAN STRESS Test Indications: CP Target HR: 142 bpm Resting ECG: NSR W/ LBBB Resting Heart Rate: 56 bpm Resting Blood Pressure: 122/80mmHg submaximum (85%): 121 bpm TEST SUMMARY [id number]:01..1.058/.0. PREINFSNHYPERV.06:[id number]/80.0. INFUSIONDOSE 100:300.00.01.060/.0. [id number]/80.0. PROCEDURE Pharmacologic stress testing was performed using 0.4mg per 5ml of regadenoson given intravenously over 7-10 seconds. Reversal agent aminophyline 100 mg, given intravenously for Headache. POST EXERCISE Reason for Termination: Protocol Completed Target HR: No Max HR: 60 bpm 55% of Maximum Predicted HR: 142 bpm Exercise duration: 00:30 min:sec, 0 Stage Exercise capacity: 1.0METs Max Blood Pressure: 122/80mmHg Blood Pressure response to exercise: normal resting BP - appropriate response Heart Rate response to exercise: appropriate Chest Pain: No, none Angina index: 0 Arrhythmia: No, none ST Change: No, none FROM BASELINE Deviation: 0 mm INTERPRETATION Stress EKG Conclusion: INCONCLUSIVE LEXISCAN DUE TO PRE-EXISTING LBBB NORMAL BP RESPONSE TO LEXISCAN NUCLEAR STUDIES TO BE REPORTED SEPARATELY EXAM: Myocardial Perfusion STRESS/REST Imaging Protocol The imaging protocol used to acquire images was Stress Tc-99m/rest Tc-99m 1 day Stress Spect myocardial perfusion imaging was performed in supine position 41 minutes following the injection of 13 mCi of Tc-99 Myoview. Gated Rest Spect was performed 40 minutes after intravenous 32.3 mCi Tc-99 Myoview injection. The images were gated to evaluate regional wall motion and calculate ventricular ejection fraction.Images were reconstructed using backfilter projection method in short horizontal and verticle long axis. Spect slices were generated. RESTING DATA EDV82.86tmWR4.10L/min ESV47.00mlMyocardial Lpqd183.00g Av. Heart Rate59.00bpm EF43.00% STRESS DATA EDV73.35yuFG5.60L/min ESV30.00mlMyocardial Erii601.00g EF59.00% Regional WT score at stress:3.00 Regional WM score at stress:0.00 Summed WT score at stress:29.00 Av. Heart Rate61.00bpmSummed WM score at stress:8.00 LV Perf. Quant 17 Seg. SSS15.00 17 Seg. SRS11.00 17 Seg. SDS4.00 Stress Defect Extent (% LAD)14.40Rest Defect Extent (% LAD)28.80Rev. Defect Extent (% LAD)0.00 Stress Defect Extent (% LCX)27.50Rest Defect Extent (% LCX)25.00Rev. Defect Extent (% LCX)0.00 Stress Defect Extent (% RCA)13.30Rest Defect Extent (% RCA)15.60Rev. Defect Extent (% RCA)2.20 Stress Defect Extent (% RADAMES)20.70Rest Defect Extent (% RADAMES)30.20Rev. Defect Extent (% RADAMES)1.50 IMPRESSION Normal Myocardial Perfusion exercise stress study Left Ventricle LV Size/Shape: The left ventricle is normal size. LV Function:Left ventricle systolic function is normal. The Ejection Fraction is 50-55%. Regional Wall Motion:There is normal left ventricular wall motion. Metabolism/Perfusion Defects: There is no scan evidence of reversible ischemia noted. There are no perfusion/metabolism defects. Conclusion 1. There is no scan evidence of reversible ischemia noted. 2. Left ventricle systolic function is normal. 3. The Ejection Fraction is 50-55%.
[2017-06-19] MEDS: Albuterol-Ipratrop 3 mg / 0.5 (3 ml) UD INH SCH ×2 (01:22→08:42)
[2017-06-19 08:28] VITALS: PULSE 79
[2017-06-19 08:34] VITALS: BP 176/67; TEMP 97.7; O2SAT 96
[2017-06-19] MEDS: Ranolazine 500 mg Extended Release Tablets PO SCH (09:10)
[2017-06-19] MEDS: Metoprolol Succinate 25 mg XL Tab PO SCH (09:10)
--- NOTE | 2017-06-19 09:30 | CP.PCM.PN ---
Subjective - Date & Time of Evaluation Date of Evaluation: 06/19/17 Time of Evaluation: 09:00 - Subjective Subjective: Pulmonology Note for Dr. Nathan's Service Patient seen and examined at bedside this morning. S/P stress test. No acute complaints. Denied fever, chills, headache, chest pain, SOB, cough abdominal pain, n/v/d/c, or urinary symptoms. Objective - Vital Signs/Intake and Output Vital Signs (last 24 hours): Temp Pulse Resp BP Pulse Ox 97.7 F 79 20 176/67 H 96 06/19/17 07:30 06/19/17 07:53 06/19/17 07:30 06/19/17 07:30 06/19/17 07:30 Intake and Output: 06/19/17 06/19/17 06:59 18:59 Intake Total 480 Balance 480 - Medications Medications: Current Medications Albuterol/Ipratropium (Duoneb 3 Mg/0.5 Mg (3 Ml) Ud) 3 ml INH RQ6 [facility] Last Admin: 06/19/17 08:42 Dose: 3 ml Aspirin (Ecotrin) 81 mg PO DAILY [facility] Last Admin: 06/19/17 09:10 Dose: 81 mg Clopidogrel Bisulfate (Plavix) 75 mg PO DAILY [facility] Last Admin: 06/19/17 09:10 Dose: 75 mg Losartan Potassium (Cozaar) 50 mg PO DAILY [facility] Last Admin: 06/19/17 09:10 Dose: 50 mg Metoprolol Succinate (Toprol Xl) 25 mg PO DAILY [facility] Last Admin: 06/19/17 09:10 Dose: 25 mg Ranolazine (Ranexa) 500 mg PO BID [facility] Last Admin: 06/19/17 09:10 Dose: 500 mg Rosuvastatin Calcium (Crestor) 5 mg PO HS [facility] Last Admin: 06/18/17 21:04 Dose: 5 mg - Labs Labs: 06/15/17 04:45 06/15/17 04:45 - Additional Findings Additional findings: - Constitutional Appears: No Acute Distress - Head Exam Head Exam: NORMAL INSPECTION, NORMOCEPHALIC - Eye Exam Eye Exam: EOMI, Normal appearance, PERRL Pupil Exam: NORMAL ACCOMODATION - ENT Exam ENT Exam: Mucous Membranes Moist - Neck Exam Neck exam: Positive for: Normal Inspection - Respiratory Exam Respiratory Exam: No wheezing, rhonchi, or rales - Cardiovascular Exam Cardiovascular Exam: REGULAR RHYTHM - GI/Abdominal Exam GI & Abdominal Exam: Normal Bowel Sounds, Soft. absent: Distended, Tenderness - Extremities Exam Extremities exam: Positive for: normal inspection, pedal pulses present. Negative for: pedal edema, tenderness - Neurological Exam Neurological exam: Alert, CN II-XII Intact, Oriented x3 Assessment and Plan - Assessment and Plan (Free Text) Plan: Dyspnea Most likely Secondary to New Onset Diastolic CHF No JVD, no +S3 noted, BL lower extremity swelling BNP:1330 Imaging: CXR: No interval infiltrate or pulmonary venous significant congestion. No pleural effusion or pneumothorax. Cardiomegaly, tortuous/prominent calcified thoracic aorta - the prominence and tortuosity is of unknown chronicity. Direct comparison with prior outside studies is recommended to assess stability. Consider CT chest to evaluate the thoracic aortic if needed. Chest CT w/o: Multiple tiny nodular opacities (Less than 4 mm) several of which appear partially ground-glass noted in addition to regions of the alveolar opacities ; correlate clinically for infectious or inflammatory process. Recommend short-term follow-up to assess for complete resolution. 2.4 cm low-density hepatic lesion, 10 HU consistent with a cyst. Additional too small to characterize hepatic hypodensities. Fatty atrophy of the pancreas. Labs: Procal - low, rapid flu - negative, legionella - negative, strep pneumo and mycoplasma - pending Medications: Duonebs ECHO: LVEF 60%, Diastolic Dysfunction, HTN heart disease, Moderate AR, moderate Pulmonic Valvular regurgitation. Nuclear Stress Test - No evidence of reversible ischemia noted. LVEF 50-55%, left ventricle systolic function is normal. Continue management as per Cardiology. Elevated D Dimer D-dimer- 500 Not tachycardic EKst degree AV block. LBBB. Left axis deviation Due to renal function: VQ Scan - low probability of PE CHRISTOPHE Hx HTN Hx HLD Hx Asthma Patient is for discharge today as per primary. Solo Noe Dr., DO, PGY-1
--- NOTE | 2017-06-19 09:38 | CP.PCM.PN ---
Subjective - Date & Time of Evaluation Date of Evaluation: 06/19/17 Time of Evaluation: 09:15 - Subjective Subjective: Pt no more chest pain; no SOB Had stress test and negative Objective - Vital Signs/Intake and Output Vital Signs (last 24 hours): Temp Pulse Resp BP Pulse Ox 97.7 F 79 20 176/67 H 96 06/19/17 07:30 06/19/17 07:53 06/19/17 07:30 06/19/17 07:30 06/19/17 07:30 Intake and Output: 06/19/17 06/19/17 06:59 18:59 Intake Total 480 Balance 480 - Medications Medications: Current Medications Albuterol/Ipratropium (Duoneb 3 Mg/0.5 Mg (3 Ml) Ud) 3 ml INH RQ6 [facility] Last Admin: 06/19/17 08:42 Dose: 3 ml Aspirin (Ecotrin) 81 mg PO DAILY [facility] Last Admin: 06/19/17 09:10 Dose: 81 mg Clopidogrel Bisulfate (Plavix) 75 mg PO DAILY [facility] Last Admin: 06/19/17 09:10 Dose: 75 mg Losartan Potassium (Cozaar) 50 mg PO DAILY [facility] Last Admin: 06/19/17 09:10 Dose: 50 mg Metoprolol Succinate (Toprol Xl) 25 mg PO DAILY [facility] Last Admin: 06/19/17 09:10 Dose: 25 mg Ranolazine (Ranexa) 500 mg PO BID [facility] Last Admin: 06/19/17 09:10 Dose: 500 mg Rosuvastatin Calcium (Crestor) 5 mg PO HS [facility] Last Admin: 06/18/17 21:04 Dose: 5 mg - Labs Labs: 06/15/17 04:45 06/15/17 04:45 - Constitutional Appears: No Acute Distress - Eye Exam Eye Exam: Normal appearance - ENT Exam ENT Exam: Mucous Membranes Moist - Neck Exam Neck Exam: Full ROM. absent: Lymphadenopathy, Thyromegaly - Respiratory Exam Respiratory Exam: Rales. absent: Decreased Breath Sounds, Rhonchi, Wheezes - Cardiovascular Exam Cardiovascular Exam: REGULAR RHYTHM, +S1, +S2. absent: Gallop, JVD, Murmur - GI/Abdominal Exam GI & Abdominal Exam: Soft. absent: Tenderness, Mass - Extremities Exam Extremities Exam: Normal Capillary Refill. absent: Calf Tenderness, Joint Swelling Assessment and Plan - Assessment and Plan (Free Text) Assessment: Margarito pain - likely non cardiac HTN, CAD will discharge Omeprazole x 2 wks.
--- NOTE | 2017-06-19 10:39 | PCM.HF ---
Heart Failure Core Measure - Heart Failure Ejection Fraction: 40 % or Greater BRIE Inhibitor Prescribed: No Contraindication/Reason for not providing: ARB Beta-Eliza Prescribed: None Contraindication/Reason for not providing: EF FUCNTION IS NORMAL Angiotensin II Receptor Eliza Prescribed: Yes AnticoagulationTherapy for Atrial Fibrillation/Atrialflutter: No Contraindication/Reason for not providing: NO HX OF AFIB Aldosterone Antagonist Prescribed: No Contraindication/Reason for not providing: EF FUCNTION IS NORMAL Hydralazine Nitrate Prescribed: No Contraindication/Reason for not providing: EF FUCNTION IS NORMAL Implantable Cardioverter Defibrillator Therapy: No Contraindication/Reason for not providing: EF FUCNTION IS NORMAL Cardiac Resynchronization Therapy Prescribed: No Contraindication/Reason for not providing: NO HX OF AICD - Follow up Will be discharged to: Home Follow Up Date (must be within 7 days from discharge): 06/26/17 Follow Up Time: 09:00
--- NOTE | 2017-07-05 08:37 | CP.PCM.DIS ---
Provider - Provider Date of Admission: 06/14/17 17:32 76 y/o female with ? (+) Stress test n 2015. patient has been having chest heaviness at night x mth. Pt noted mild SOB night prior to admission and went to ER Attending physician: Duane Jaquez MD Time Spent in preparation of Discharge (in minutes): 11 Hospital Course - Lab Results Lab Results: Most Recent Lab Values WBC 6.0 K/uL (4.8-10.8) 06/15/17 04:45 RBC 3.93 Mil/uL (3.80-5.20) 06/15/17 04:45 Hgb 12.7 g/dL (11.0-16.0) 06/15/17 04:45 Hct 37.3 % (34.0-47.0) 06/15/17 04:45 MCV 94.9 fL (81.0-99.0) 06/15/17 04:45 MCH 32.3 pg (27.0-31.0) H 06/15/17 04:45 MCHC 34.0 g/dL (33.0-37.0) 06/15/17 04:45 RDW 12.9 % (11.5-14.5) 06/15/17 04:45 Plt Count 124 K/uL (130-400) L 06/15/17 04:45 MPV 9.5 fL (7.2-11.7) 06/15/17 04:45 Neut % (Auto) 51.7 % (50.0-75.0) 06/15/17 04:45 Lymph % (Auto) 31.1 % (20.0-40.0) 06/15/17 04:45 [place] % (Auto) 9.1 % (0.0-10.0) 06/15/17 04:45 Eos % (Auto) 7.4 % (0.0-4.0) H 06/15/17 04:45 Baso % (Auto) 0.7 % (0.0-2.0) 06/15/17 04:45 Neut # 3.1 K/uL (1.8-7.0) 06/15/17 04:45 Lymph # 1.9 K/uL (1.0-4.3) 06/15/17 04:45 [place] # 0.5 K/uL (0.0-0.8) 06/15/17 04:45 Eos # 0.4 K/uL (0.0-0.7) 06/15/17 04:45 Baso # 0.0 K/uL (0.0-0.2) 06/15/17 04:45 D-Dimer, Quantitative 499 ng/mlDDU (0-243) H 06/15/17 12:27 Sodium 138 mmol/L (132-148) 06/15/17 04:45 Potassium 3.3 mmol/L (3.6-5.2) L 06/15/17 04:45 Chloride 104 mmol/L (98-107) 06/15/17 04:45 Carbon Dioxide 22 mmol/L (22-30) 06/15/17 04:45 Anion Gap 15 (10-20) 06/15/17 04:45 BUN 33 mg/dL (7-17) H 06/15/17 04:45 Creatinine 1.4 mg/dL (0.7-1.2) H 06/15/17 04:45 Est GFR ( Amer) 44 06/15/17 04:45 Est GFR (Non-Af Amer) 36 06/15/17 04:45 Random Glucose 95 mg/dL (65-105) 06/15/17 04:45 Calcium 9.4 mg/dl (8.6-10.4) 06/15/17 04:45 Magnesium 1.8 mg/dL (1.6-2.3) 06/15/17 09:40 Total Bilirubin 0.9 mg/dL (0.2-1.3) 06/15/17 04:45 AST 31 U/L (14-36) 06/15/17 04:45 ALT 35 U/L (9-52) 06/15/17 04:45 Alkaline Phosphatase 71 U/L (38-126) 06/15/17 04:45 Total Creatine Kinase 81 U/L (30-135) 06/15/17 06:55 CK-MB (Mass) 1.08 ng/mL (0.0-3.38) 06/15/17 06:55 Troponin I 0.0460 ng/mL (0.00-0.120) 06/14/17 15:13 Troponin I, Quant 0.0450 ng/mL (0.00-0.120) 06/15/17 06:55 NT-Pro-B Natriuret Pep 1330 pg/mL (0-900) H 06/14/17 15:13 Total Protein 7.7 g/dL (6.3-8.3) 06/15/17 04:45 Albumin 4.1 g/dL (3.5-5.0) 06/15/17 04:45 Globulin 3.6 gm/dL (2.2-3.9) 06/15/17 04:45 Albumin/Globulin Ratio 1.1 (1.0-2.1) 06/15/17 04:45 Procalcitonin 0.08 NG/ML (0.19-0.49) L 06/15/17 15:30 Influenza Typ A,B (EIA) Negative for flu a/b (NEGATIVE) 06/16/17 Unknown Ur L.pneumophila Ag Negative (NEGATIVE) 06/15/17 15:30 Mycoplasma pneumon IgG 3.70 (<=0.90) H 06/16/17 08:25 Mycoplasma pneumon IgM 40 U/mL (<770) 06/16/17 08:25 Ur Strep pneumoniae Ag Not detected 06/15/17 15:30 - Hospital Course Hospital Course: Pt admitd for chest pain and referred tocardiology and Pulm service. Pt had stress test and BP meds was increase. Pt CP improve and discharge. Discharge Exam - Head Exam Head Exam: NORMAL INSPECTION - Eye Exam Eye Exam: Normal appearance - ENT Exam ENT Exam: Mucous Membranes Moist - Neck Exam Neck exam: Full Rom, Normal Inspection - Respiratory Exam Respiratory Exam: Clear to PA & Lateral. absent: Rales, Rhonchi, Wheezes - Cardiovascular Exam Cardiovascular Exam: REGULAR RHYTHM, +S1, +S2, Systolic Murmur. absent: Gallop , JVD - GI/Abdominal Exam GI & Abdominal Exam: Soft. absent: Rebound, Rigid, Tenderness - Extremities Exam Extremities exam: full ROM, normal capillary refill, pedal pulses present Discharge Plan - Follow Up Plan Condition: FAIR Disposition: HOME/ ROUTINE Instructions: Heart Failure (DC), Dyspnea (GEN), Hypertension (DC) Additional Instructions: As per MD, patient is cleared for discharge home. Continue all home medications. Please follow up with Dr aJquez within a week. Referrals: Duane Jaquez MD [Staff Provider] -
== END 2017-06-19 12:50 | disposition home or self-care (01) | DRG 313 ==
LOC: C.ER 13:30 → C.9E 17:32 → C.6T 06-15 13:18
PROVIDERS: ADMIT Internal Medicine; ATTEND Internal Medicine
DX: R07.89 Other chest pain (principal); I11.0 Hypertensive heart disease with heart failure; I25.10 Atherosclerotic heart disease of native coronary artery without angina pectoris; I50.31 Acute diastolic (congestive) heart failure; I44.7 Left bundle-branch block, unspecified; E78.5 Hyperlipidemia, unspecified; E87.6 Hypokalemia; N28.9 Disorder of kidney and ureter, unspecified; K21.9 Gastro-esophageal reflux disease without esophagitis; J45.909 Unspecified asthma, uncomplicated

== ENCOUNTER 2018-04-13 15:07 | Inpatient (IN) | payer MEDICARE, MEDICAID ==
[2018-04-13] MEDS ORDERED: Albuterol 0.083% Inhal Sol (2.5 mg/3 mL) UD IH STA (15:44)
[2018-04-13] MEDS ORDERED: Albuterol 0.083% Inhal Sol (2.5 mg/3 mL) UD ONE (16:01)
[2018-04-13 16:17] LABS: BASO % 0.5 % (0.0-2.0); EOS # 0.4 K/uL (0.0-0.7); EOS % 7.1 % (0.0-4.0); HEMOGLOBIN 11.8 g/dL (11.0-16.0); LYMPH # 1.5 K/uL (1.0-4.3); LYMPH % 25.3 % (20.0-40.0); MEAN CELL VOLUME 93.4 fL (81.0-99.0); MEAN CORPUSCULAR HGB CONC 35.3 g/dL (33.0-37.0); MEAN PLATELET VOLUME 9.7 fL (7.2-11.7); MONO # 0.5 K/uL (0.0-0.8); MONO % 8.7 % (0.0-10.0); NEUT # 3.5 K/uL (1.8-7.0); NEUT % 58.4 % (50.0-75.0); RBC 3.58 Mil/uL (3.80-5.20); RED CELL DISTRIBUTION WIDTH 12.6 % (11.5-14.5); WHITE BLOOD COUNT 5.9 K/uL (4.8-10.8)
[2018-04-13 16:23] LABS: INR 1.1; PROTHROMBIN TIME 11.5 SECONDS (9.7-12.2)
--- NOTE | 2018-04-13 16:28 | RAD ---
Date of service: 04/13/2018 PROCEDURE: CHEST RADIOGRAPH, 1 VIEW HISTORY: SOB COMPARISON: Frontal chest radiograph 06/14/2017. FINDINGS: LUNGS: Normal in size and contour. No mass. PLEURA: No pneumothorax or pleural fluid seen. CARDIOVASCULAR: Cardiomegaly. No pulmonary vascular congestion. OSSEOUS STRUCTURES: No significant abnormalities. VISUALIZED UPPER ABDOMEN: Normal. OTHER FINDINGS: None. IMPRESSION: No interval acute cardiopulmonary disease appreciated. Stable cardiomegaly.
[2018-04-13 16:31] LABS: ALB/GLOB RATIO 1.3 (1.0-2.1); ALBUMIN 4.6 g/dL (3.5-5.0)
[2018-04-13 16:39] LABS: CK-MB 0.87 ng/mL (0.0-3.38)
[2018-04-13 16:40] LABS: TROPONIN I 0.016 ng/mL (0.00-0.120)
[2018-04-13 17:11] LABS: URINE BILIRUBIN NEGATIVE (NEGATIVE); URINE BLOOD NEGATIVE (NEGATIVE); URINE CLARITY Clear (Clear); URINE COLOR Straw (YELLOW); URINE GLUCOSE (UA) NORMAL (Normal); URINE LEUKOCYTE ESTERASE NEG Leu/uL (Negative); URINE PROTEIN NEGATIVE (NEGATIVE); URINE UROBILINOGEN NORMAL mg/dL (0.2-1.0)
--- NOTE | 2018-04-13 17:33 | C.PDOC ---
History Of Present Illness 77 yo female with PMH HTN, CHF, asthma, CKD c/o chest pain and sob that started at 430 am. She took Aspirin and was able to sleep elevated on pillows. The pain has resolved now. Notes sSOB persists if she lies down flat. Denies headache, syncope, weakness, leg swelling, abdominal pain, fever, cough or n/v. SHe had a nuclear stress test in 2017 which was negative. Also had similar episode last year when she was hospitalized for CHF. Notes she is compliant with her chronic medication. The SOB feels different there her asthma exacerbations. Saw nephrology last week for worsening kidney function. Time Seen by Provider: 04/13/18 15:30 Chief Complaint (Nursing): Shortness Of Breath History Per: Patient, Family (grandson) History/Exam Limitations: no limitations Onset/Duration Of Symptoms: Hrs Current Symptoms Are (Timing): Better Past Medical History Vital Signs: Last Vital Signs Temp 97.9 F 04/13/18 15:42 Pulse 67 04/13/18 15:44 Resp 17 04/13/18 15:49 BP 156/69 H 04/13/18 15:44 Pulse Ox 99 04/13/18 17:33 - Medical History PMH: Arthritis, Asthma, CHF, HTN Denies: Chronic Kidney Disease Family History: States: Unknown Family Hx - Social History Hx Alcohol Use: No Hx Substance Use: No - Immunization History Hx Tetanus Toxoid Vaccination: No Hx Influenza Vaccination: No Hx Pneumococcal Vaccination: No Review Of Systems Except As Marked, All Systems Reviewed And Found Negative. Cardiovascular: Positive for: Chest Pain, Orthopnea Respiratory: Positive for: Shortness of Breath Physical Exam - Physical Exam Appears: Well, Non-toxic, No Acute Distress Skin: Normal Color, Warm, Dry Head: Atraumatic, Normacephalic Eye(s): bilateral: Normal Inspection, EOMI Nose: Normal Oral Mucosa: Moist Throat: Normal, No Erythema, No Exudate Neck: Normal, Normal ROM, Supple Chest: Symmetrical Cardiovascular: Rhythm Regular Respiratory: Normal Breath Sounds, No Accessory Muscle Use Gastrointestinal/Abdominal: Normal Exam, Soft, Tenderness Back: Normal Inspection Extremity: Normal ROM, No Calf Tenderness, No Swelling Neurological/Psych: Oriented x3, Normal Speech, Normal Cognition ED Course And Treatment - Laboratory Results Result Diagrams: 04/13/18 16:09 04/13/18 16:09 ECG: Interpreted By Me, Viewed By Me ECG Rhythm: Sinus Rhythm, Nonspecific Changes Rate From EC O2 Sat by Pulse Oximetry: 99 Progress Note: WHen laying flat, pt states shefeels like she cant breath. Apirin given. Case discussed with Dr Jaquez, agreed upon plan and admission. Disposition - Disposition Disposition Time: 17:00 Condition: STABLE - Clinical Impression Clinical Impression: Dyspnea, Chest pain
[2018-04-14] MEDS: Albuterol-Ipratrop 3 mg / 0.5 (3 ml) UD INH SCH ×4 (07:50→20:46)
[2018-04-14] MEDS: Ranolazine 500 mg Extended Release Tablets PO SCH ×2 (09:31→17:37)
--- NOTE | 2018-04-14 14:53 | CP.PCM.HP ---
History of Present Illness - History of Present Illness History of Present Illness: CC: Chestpain HPI: C/o chest pain and shorthness of breath 1 day. No fever. No cough. Seen at ER Review of Systems - Review of Systems All systems: reviewed and no additional remarkable complaints except (No fever, no loss of weight, no abdominal pain, appette good) Past Patient History - Infectious Disease Hx of Infectious Diseases: None - Past Medical History & Family History Past Medical History?: Yes - Past Social History Smoking Status: Never Smoked - CARDIAC Hx Congestive Heart Failure: Yes Hx Hypertension: Yes - PULMONARY Hx Asthma: Yes - NEUROLOGICAL Hx Neurological Disorder: No - HEENT Hx Cataracts: Yes (both eyes ) - RENAL Hx Chronic Kidney Disease: No - ENDOCRINE/METABOLIC Hx Endocrine Disorders: No - HEMATOLOGICAL/ONCOLOGICAL Hx Blood Disorders: No - INTEGUMENTARY Hx Dermatological Problems: No - MUSCULOSKELETAL/RHEUMATOLOGICAL Hx Arthritis: Yes - GASTROINTESTINAL Hx Constipation: Yes (2days) - GENITOURINARY/GYNECOLOGICAL Hx Genitourinary Disorders: No - PSYCHIATRIC Hx Substance Use: No - SURGICAL HISTORY Other/Comment: right leg Vein stripping years ago - ANESTHESIA Hx Anesthesia: No Meds Allergies/Adverse Reactions: Allergies Allergy/AdvReac Type Severity Reaction Status Date / Time No Known Allergies Allergy Verified 04/13/18 15:24 Physical Exam - Constitutional Appears: No Acute Distress - Head Exam Head Exam: NORMAL INSPECTION - Eye Exam Eye Exam: Normal appearance - ENT Exam ENT Exam: Normal Exam - Neck Exam Neck exam: Positive for: Normal Inspection - Respiratory Exam Respiratory Exam: NORMAL BREATHING PATTERN - Cardiovascular Exam Cardiovascular Exam: REGULAR RHYTHM - GI/Abdominal Exam GI & Abdominal Exam: Soft - Rectal Exam Rectal Exam: Deferred - Neurological Exam Neurological exam: Alert - Psychiatric Exam Psychiatric exam: Normal Affect - Skin Skin Exam: Normal Color Results - Vital Signs Recent Vital Signs: Last Vital Signs Temp 97.8 F 04/14/18 07:00 Pulse 54 L 04/14/18 12:07 Resp 17 04/14/18 12:07 BP 124/68 04/14/18 12:07 Pulse Ox 97 04/14/18 12:07 - Labs Result Diagrams: 04/13/18 16:09 04/13/18 16:09 Labs: Laboratory Results - last 24 hr 04/13/18 04/13/18 04/13/18 16:09 16:09 16:09 WBC 5.9 RBC 3.58 L Hgb 11.8 Hct 33.4 L MCV 93.4 MCH 33.0 H MCHC 35.3 RDW 12.6 Plt Count 154 MPV 9.7 Neut % (Auto) 58.4 Lymph % (Auto) 25.3 Stone % (Auto) 8.7 Eos % (Auto) 7.1 H Baso % (Auto) 0.5 Neut # (Auto) 3.5 Lymph # (Auto) 1.5 Stone # (Auto) 0.5 Eos # (Auto) 0.4 Baso # (Auto) 0.0 PT 11.5 INR 1.1 APTT 34 Sodium 145 Potassium 4.6 Chloride 107 Carbon Dioxide 24 Anion Gap 19 BUN 49 H Creatinine 2.1 H Est GFR ( Amer) 27 Est GFR (Non-Af Amer) 23 Random Glucose 111 H Calcium 10.0 Total Bilirubin 1.1 AST 49 H D ALT 22 Alkaline Phosphatase 62 Total Creatine Kinase 93 CK-MB (Mass) 0.87 Troponin I 0.0160 NT-Pro-B Natriuret Pep 304 Total Protein 8.3 Albumin 4.6 Globulin 3.7 Albumin/Globulin Ratio 1.3 Triglycerides Cholesterol LDL Cholesterol Direct HDL Cholesterol Lipase 360 H TSH 3rd Generation Urine Color Urine Clarity Urine pH Ur Specific [place] Urine Protein Urine Glucose (UA) Urine Ketones Urine Blood Urine Nitrate Urine Bilirubin Urine Urobilinogen Ur Leukocyte Esterase Urine WBC (Auto) 04/13/18 04/14/18 04/14/18 17:05 00:18 08:49 WBC RBC Hgb Hct MCV MCH MCHC RDW Plt Count MPV Neut % (Auto) Lymph % (Auto) Stone % (Auto) Eos % (Auto) Baso % (Auto) Neut # (Auto) Lymph # (Auto) Stone # (Auto) Eos # (Auto) Baso # (Auto) PT INR APTT Sodium Potassium Chloride Carbon Dioxide Anion Gap BUN Creatinine Est GFR ( Amer) Est GFR (Non-Af Amer) Random Glucose Calcium Total Bilirubin AST ALT Alkaline Phosphatase Total Creatine Kinase CK-MB (Mass) Troponin I 0.0140 NT-Pro-B Natriuret Pep Total Protein Albumin Globulin Albumin/Globulin Ratio Triglycerides 296 H Cholesterol 175 LDL Cholesterol Direct 76 HDL Cholesterol 27 L Lipase TSH 3rd Generation 2.50 Urine Color Straw Urine Clarity Clear Urine pH 5.0 Ur Specific [place] 1.005 Urine Protein Negative Urine Glucose (UA) Normal Urine Ketones Negative Urine Blood Negative Urine Nitrate Negative Urine Bilirubin Negative Urine Urobilinogen Normal Ur Leukocyte Esterase Neg Urine WBC (Auto) < 1 04/14/18 08:49 WBC RBC Hgb Hct MCV MCH MCHC RDW Plt Count MPV Neut % (Auto) Lymph % (Auto) Stone % (Auto) Eos % (Auto) Baso % (Auto) Neut # (Auto) Lymph # (Auto) Stone # (Auto) Eos # (Auto) Baso # (Auto) PT INR APTT Sodium Potassium Chloride Carbon Dioxide Anion Gap BUN Creatinine Est GFR ( Amer) Est GFR (Non-Af Amer) Random Glucose Calcium Total Bilirubin AST ALT Alkaline Phosphatase Total Creatine Kinase CK-MB (Mass) Troponin I 0.0200 NT-Pro-B Natriuret Pep Total Protein Albumin Globulin Albumin/Globulin Ratio Triglycerides Cholesterol LDL Cholesterol Direct HDL Cholesterol Lipase TSH 3rd Generation Urine Color Urine Clarity Urine pH Ur Specific [place] Urine Protein Urine Glucose (UA) Urine Ketones Urine Blood Urine Nitrate Urine Bilirubin Urine Urobilinogen Ur Leukocyte Esterase Urine WBC (Auto) Assessment & Plan (1) Chest pain Status: Acute (2) HTN (hypertension) Status: Chronic (3) Renal insufficiency Status: Chronic - Assessment and Plan (Free Text) Assessment: A/P: Continue medications. Cardiology consult Dr. Del Angel - Date & Time Date: 04/14/18 Time: 14:55
[2018-04-15] MEDS: Albuterol-Ipratrop 3 mg / 0.5 (3 ml) UD INH SCH ×4 (07:34→19:46)
--- NOTE | 2018-04-15 08:45 | CP.PCM.PN ---
Subjective - Date & Time of Evaluation Date of Evaluation: 04/15/18 Time of Evaluation: 08:40 - Subjective Subjective: Pt still has chest tightness thia AM. No SOB, no cough, no n/v. no diarrhea, no abd pain Objective - Vital Signs/Intake and Output Vital Signs (last 24 hours): Temp Pulse Resp BP Pulse Ox 97.5 F L 76 20 173/77 H 95 04/15/18 07:00 04/15/18 08:08 04/15/18 07:00 04/15/18 07:00 04/15/18 08:02 - Medications Medications: Current Medications Albuterol/Ipratropium (Duoneb 3 Mg/0.5 Mg (3 Ml) Ud) 3 ml INH RQID [facility] Last Admin: 04/15/18 07:34 Dose: 3 ml Amlodipine Besylate (Norvasc) 5 mg PO DAILY [facility] Last Admin: 04/14/18 09:31 Dose: 5 mg Heparin Sodium (Porcine) (Heparin) 5,000 units SC Q12 [facility] Last Admin: 04/14/18 21:36 Dose: 5,000 units Losartan Potassium (Cozaar) 50 mg PO DAILY [facility] Metoprolol Tartrate (Lopressor) 25 mg PO BID [facility] Last Admin: 04/14/18 17:37 Dose: 25 mg Ranolazine (Ranexa) 500 mg PO BID [facility] Last Admin: 04/14/18 17:37 Dose: 500 mg Rosuvastatin Calcium (Crestor) 5 mg PO HS [facility] Last Admin: 04/14/18 21:36 Dose: 5 mg - Labs Labs: 04/13/18 16:09 04/13/18 16:09 PT 11.5 SECONDS (9.7-12.2) 04/13/18 16:09 INR 1.1 04/13/18 16:09 APTT 34 SECONDS (21-34) 04/13/18 16:09 - Constitutional Appears: No Acute Distress - Eye Exam Eye Exam: Normal appearance - ENT Exam ENT Exam: Mucous Membranes Moist - Neck Exam Neck Exam: Full ROM. absent: Lymphadenopathy, Thyromegaly - Respiratory Exam Respiratory Exam: Clear to Ausculation Bilateral. absent: Rales, Rhonchi, Wheezes - Cardiovascular Exam Cardiovascular Exam: REGULAR RHYTHM, +S1, +S2, Murmur. absent: Gallop, JVD - GI/Abdominal Exam GI & Abdominal Exam: Soft. absent: Tenderness, Mass - Extremities Exam Extremities Exam: Full ROM, Normal Capillary Refill. absent: Calf Tenderness, Joint Swelling, Pedal Edema Assessment and Plan - Assessment and Plan (Free Text) Assessment: Ac Coronary Syndrome; HTN, CKD/ CAD Await cardio Cont meds/ add losartan c/o still inc BP
[2018-04-15] MEDS: Ranolazine 500 mg Extended Release Tablets PO SCH ×2 (09:04→18:04)
[2018-04-15] MEDS: Sodium Chloride 0.45% 1,000 ML IV SCH (18:00)
--- NOTE | 2018-04-15 23:19 | CP.PCM.CON ---
History of Present Illness - History of Present Illness History of Present Illness: Patient seen and evaluated Unstable angina Scheduled for cath in am IV Hydration Renal eval Past Patient History - Infectious Disease Hx of Infectious Diseases: None - Past Medical History & Family History Past Medical History?: Yes - Past Social History Smoking Status: Never Smoked - CARDIAC Hx Congestive Heart Failure: Yes Hx Hypertension: Yes - PULMONARY Hx Asthma: Yes - NEUROLOGICAL Hx Neurological Disorder: No - HEENT Hx Cataracts: Yes (both eyes ) - RENAL Hx Chronic Kidney Disease: No - ENDOCRINE/METABOLIC Hx Endocrine Disorders: No - HEMATOLOGICAL/ONCOLOGICAL Hx Blood Disorders: No - INTEGUMENTARY Hx Dermatological Problems: No - MUSCULOSKELETAL/RHEUMATOLOGICAL Hx Arthritis: Yes - GASTROINTESTINAL Hx Constipation: Yes (2days) - GENITOURINARY/GYNECOLOGICAL Hx Genitourinary Disorders: No - PSYCHIATRIC Hx Substance Use: No - SURGICAL HISTORY Other/Comment: right leg Vein stripping years ago - ANESTHESIA Hx Anesthesia: No Meds Allergies/Adverse Reactions: Allergies Allergy/AdvReac Type Severity Reaction Status Date / Time No Known Allergies Allergy Verified 04/13/18 15:24 - Medications Medications: Current Medications Albuterol/Ipratropium (Duoneb 3 Mg/0.5 Mg (3 Ml) Ud) 3 ml INH RQID [facility] Last Admin: 04/15/18 19:46 Dose: 3 ml Amlodipine Besylate (Norvasc) 5 mg PO DAILY [facility] Last Admin: 04/15/18 09:04 Dose: 5 mg Heparin Sodium (Porcine) (Heparin) 5,000 units SC Q12 [facility] Last Admin: 04/15/18 21:52 Dose: 5,000 units Sodium Chloride (Sodium Chloride 0.45%) 1,000 mls @ 70 mls/hr IV .[id number] [facility] Stop: 04/16/18 17:01 Last Admin: 04/15/18 18:00 Dose: 70 mls/hr Losartan Potassium (Cozaar) 50 mg PO DAILY [facility] Last Admin: 04/15/18 09:04 Dose: 50 mg Metoprolol Tartrate (Lopressor) 25 mg PO BID [facility] Last Admin: 04/15/18 18:04 Dose: 25 mg Ranolazine (Ranexa) 500 mg PO BID [facility] Last Admin: 04/15/18 18:04 Dose: 500 mg Rosuvastatin Calcium (Crestor) 5 mg PO HS [facility] Last Admin: 04/15/18 21:52 Dose: 5 mg Results - Vital Signs Recent Vital Signs: Last Vital Signs Temp 97.7 F 04/15/18 15:35 Pulse 81 04/15/18 16:00 Resp 20 04/15/18 15:35 BP 132/70 04/15/18 18:04 Pulse Ox 99 04/15/18 15:35 - Labs Result Diagrams: 04/13/18 16:09 04/13/18 16:09
[2018-04-16 07:25] LABS: BASO % 0.5 % (0.0-2.0); EOS # 0.4 K/uL (0.0-0.7); EOS % 6.3 % (0.0-4.0); LYMPH # 1.8 K/uL (1.0-4.3); LYMPH % 28.9 % (20.0-40.0); MEAN CELL VOLUME 94.6 fL (81.0-99.0); MEAN CORPUSCULAR HEMOGLOBIN 32.8 pg (27.0-31.0); MEAN CORPUSCULAR HGB CONC 34.6 g/dL (33.0-37.0); MEAN PLATELET VOLUME 9.7 fL (7.2-11.7); MONO # 0.6 K/uL (0.0-0.8); MONO % 9.4 % (0.0-10.0); NEUT # 3.5 K/uL (1.8-7.0); NEUT % 54.9 % (50.0-75.0); RBC 3.36 Mil/uL (3.80-5.20); RED CELL DISTRIBUTION WIDTH 12.4 % (11.5-14.5); WHITE BLOOD COUNT 6.4 K/uL (4.8-10.8)
[2018-04-16 07:36] LABS: INR 1.1; PROTHROMBIN TIME 11.7 SECONDS (9.7-12.2)
[2018-04-16 07:43] LABS: ALB/GLOB RATIO 1.4 (1.0-2.1); CALCIUM 9.5 mg/dl (8.6-10.4)
--- NOTE | 2018-04-16 08:03 | CP.PCM.PN ---
Subjective - Date & Time of Evaluation Date of Evaluation: 04/16/18 Time of Evaluation: 07:45 - Subjective Subjective: Pt still w/ on/off CP w/SOB; not as bad compare to weekend. No cough, no edema, no palpitation, no n/v, no diaphoresis Objective - Vital Signs/Intake and Output Vital Signs (last 24 hours): Temp Pulse Resp BP Pulse Ox 97.8 F 58 L 20 169/73 H 97 04/16/18 07:51 04/16/18 07:51 04/16/18 07:51 04/16/18 07:51 04/16/18 07:53 - Medications Medications: Current Medications Amlodipine Besylate (Norvasc) 5 mg PO DAILY [facility] Last Admin: 04/15/18 09:04 Dose: 5 mg Heparin Sodium (Porcine) (Heparin) 5,000 units SC Q12 [facility] Last Admin: 04/15/18 21:52 Dose: 5,000 units Sodium Chloride (Sodium Chloride 0.45%) 1,000 mls @ 70 mls/hr IV .[id number] [facility] Stop: 04/16/18 17:01 Last Admin: 04/15/18 18:00 Dose: 70 mls/hr Losartan Potassium (Cozaar) 50 mg PO DAILY [facility] Last Admin: 04/15/18 09:04 Dose: 50 mg Metoprolol Tartrate (Lopressor) 25 mg PO BID [facility] Last Admin: 04/15/18 18:04 Dose: 25 mg Ranolazine (Ranexa) 500 mg PO BID [facility] Last Admin: 04/15/18 18:04 Dose: 500 mg Rosuvastatin Calcium (Crestor) 5 mg PO HS [facility] Last Admin: 04/15/18 21:52 Dose: 5 mg - Labs Labs: 04/16/18 07:10 04/16/18 07:10 PT 11.7 SECONDS (9.7-12.2) 04/16/18 07:10 INR 1.1 04/16/18 07:10 APTT 34 SECONDS (21-34) 04/13/18 16:09 - Constitutional Appears: No Acute Distress - Eye Exam Eye Exam: Normal appearance - ENT Exam ENT Exam: Normal Oropharynx - Neck Exam Neck Exam: Full ROM. absent: Thyromegaly - Respiratory Exam Respiratory Exam: Clear to Ausculation Bilateral. absent: Rales, Rhonchi, Wheezes - Cardiovascular Exam Cardiovascular Exam: REGULAR RHYTHM, +S1, +S2. absent: Gallop, JVD, Murmur - GI/Abdominal Exam GI & Abdominal Exam: Soft. absent: Tenderness - Extremities Exam Extremities Exam: Full ROM, Normal Capillary Refill. absent: Calf Tenderness, Joint Swelling, Pedal Edema Assessment and Plan - Assessment and Plan (Free Text) Assessment: HTN, CAD, CKD w/ recurrent CP Agree with cath/ Pt agree w/ decision On hydration; Call Dr Kassandra Laura Cont meeds for now
[2018-04-16] MEDS ORDERED: Verapamil 2 ML ONE (08:44)
[2018-04-16] MEDS ORDERED: Midazolam 2 MG/2 ML VIAL ONE (08:45)
[2018-04-16] MEDS ORDERED: Iodixanol 320 MG/ML 200 ML BOTTLE IV ONE (08:46)
[2018-04-16] MEDS ORDERED: Nitroglycerin 50mg in D5W 50 MG/250 ML BOTTLE IV ONE (08:46)
--- NOTE | 2018-04-16 09:25 | CP.PCM.CON ---
History of Present Illness - History of Present Illness History of Present Illness: Patient couldnt be seen. In cardiac cath Chart reviewed 77 yo female with HTN, CHF, asthma, CKD 3, presented w/ chest pain and sob. Pt was seen by cardiology, cardiac cath this am for unstable angina. Baseline renal function unclear, creatinine today 1.8 mg/dl. Past Patient History - Infectious Disease Hx of Infectious Diseases: None - Past Medical History & Family History Past Medical History?: Yes - Past Social History Smoking Status: Never Smoked - CARDIAC Hx Congestive Heart Failure: Yes Hx Hypertension: Yes - PULMONARY Hx Asthma: Yes - NEUROLOGICAL Hx Neurological Disorder: No - HEENT Hx Cataracts: Yes (both eyes ) - RENAL Hx Chronic Kidney Disease: No - ENDOCRINE/METABOLIC Hx Endocrine Disorders: No - HEMATOLOGICAL/ONCOLOGICAL Hx Blood Disorders: No - INTEGUMENTARY Hx Dermatological Problems: No - MUSCULOSKELETAL/RHEUMATOLOGICAL Hx Arthritis: Yes - GASTROINTESTINAL Hx Constipation: Yes (2days) - GENITOURINARY/GYNECOLOGICAL Hx Genitourinary Disorders: No - PSYCHIATRIC Hx Substance Use: No - SURGICAL HISTORY Other/Comment: right leg Vein stripping years ago - ANESTHESIA Hx Anesthesia: No Meds Allergies/Adverse Reactions: Allergies Allergy/AdvReac Type Severity Reaction Status Date / Time No Known Allergies Allergy Verified 04/13/18 15:24 - Medications Medications: Current Medications Amlodipine Besylate (Norvasc) 5 mg PO DAILY [facility] Last Admin: 04/15/18 09:04 Dose: 5 mg Aspirin (Ecotrin) 81 mg PO DAILY [facility] Heparin Sodium (Porcine) (Heparin) 5,000 units SC Q12 [facility] Last Admin: 04/15/18 21:52 Dose: 5,000 units Sodium Chloride (Sodium Chloride 0.45%) 1,000 mls @ 70 mls/hr IV .[id number] [facility] Stop: 04/16/18 17:01 Last Admin: 04/15/18 18:00 Dose: 70 mls/hr Losartan Potassium (Cozaar) 50 mg PO DAILY [facility] Last Admin: 04/16/18 08:22 Dose: 50 mg Metoprolol Tartrate (Lopressor) 25 mg PO BID [facility] Last Admin: 04/16/18 08:21 Dose: 25 mg Ranolazine (Ranexa) 500 mg PO BID [facility] Last Admin: 04/15/18 18:04 Dose: 500 mg Rosuvastatin Calcium (Crestor) 5 mg PO HS [facility] Last Admin: 04/15/18 21:52 Dose: 5 mg Results - Vital Signs Recent Vital Signs: Last Vital Signs Temp 97.8 F 04/16/18 07:51 Pulse 58 L 04/16/18 07:51 Resp 20 04/16/18 07:51 BP 155/89 H 04/16/18 08:21 Pulse Ox 97 04/16/18 07:53 - Labs Result Diagrams: 04/16/18 07:10 04/16/18 07:10 Labs: Laboratory Results - last 24 hr 04/16/18 04/16/18 04/16/18 07:10 07:10 07:10 WBC 6.4 RBC 3.36 L Hgb 11.0 Hct 31.8 L MCV 94.6 MCH 32.8 H MCHC 34.6 RDW 12.4 Plt Count 136 MPV 9.7 Neut % (Auto) 54.9 Lymph % (Auto) 28.9 [place] % (Auto) 9.4 Eos % (Auto) 6.3 H Baso % (Auto) 0.5 Neut # (Auto) 3.5 Lymph # (Auto) 1.8 [place] # (Auto) 0.6 Eos # (Auto) 0.4 Baso # (Auto) 0.0 PT 11.7 INR 1.1 Sodium 145 Potassium 3.9 Chloride 109 H Carbon Dioxide 22 Anion Gap 19 BUN 36 H Creatinine 1.8 H Est GFR ( Amer) 33 Est GFR (Non-Af Amer) 27 Random Glucose 97 Calcium 9.5 Total Bilirubin 0.5 AST 25 ALT 22 Alkaline Phosphatase 71 Total Protein 7.0 Albumin 4.0 Globulin 2.9 Albumin/Globulin Ratio 1.4 Assessment & Plan (1) Chest pain Status: Acute (2) Renal insufficiency Status: Chronic (3) CHF (congestive heart failure) Status: Acute (4) HTN (hypertension) Status: Chronic - Assessment and Plan (Free Text) Assessment: at risk for contrast nephropathy -maintain gentle iv hydration hold cozaar htn: increase norvasc dose to 10 mg daily may add hydralazine if needed ckd check ua, urine protein Will see tomorrow am for full consult
[2018-04-16] MEDS: Ranolazine 500 mg Extended Release Tablets PO SCH ×2 (09:42→17:24)
[2018-04-16] MEDS: Sodium Chloride 0.45% 1,000 ML IV SCH ×2 (09:42→21:14)
--- NOTE | 2018-04-16 16:52 | CARD ---
APPROVED REPORT Date of service: 04/13/2018 EKG Measurement Heart [id number] <Conclusion> Sinus rhythm with 1st degree AV block Left axis deviation Left ventricular hypertrophy with QRS widening and repolarization abnormality Abnormal ECG
--- NOTE | 2018-04-16 21:42 | CP.PCM.PN ---
Subjective - Date & Time of Evaluation Date of Evaluation: 04/16/18 Time of Evaluation: 21:39 - Subjective Subjective: Patient s/p cath 1. L Main: Patent 2. LAD: Proximal 70-80% stenosis, Distal 40-50% stenosis 3. L Cx: Distal 50% 4. RCA: Distal 40% stenosis 5. LV EF: 55% For LAD PCI once renal function stable Objective - Vital Signs/Intake and Output Vital Signs (last 24 hours): Temp Pulse Resp BP Pulse Ox 97.2 F L 53 L 20 120/80 97 04/16/18 16:00 04/16/18 16:40 04/16/18 16:40 04/16/18 17:25 04/16/18 16:00 Intake and Output: 04/16/18 04/17/18 18:59 06:59 Intake Total 600 Balance 600 - Medications Medications: Current Medications Amlodipine Besylate (Norvasc) 10 mg PO DAILY [facility] Last Admin: 04/16/18 09:44 Dose: Not Given Aspirin (Ecotrin) 81 mg PO DAILY [facility] Last Admin: 04/16/18 09:42 Dose: Not Given Clopidogrel Bisulfate (Plavix) 75 mg PO DAILY [facility] Last Admin: 04/16/18 17:24 Dose: 75 mg Heparin Sodium (Porcine) (Heparin) 5,000 units SC Q12 [facility] Last Admin: 04/16/18 21:10 Dose: 5,000 units Sodium Chloride (Sodium Chloride 0.45%) 1,000 mls @ 70 mls/hr IV .[id number] [facility] Stop: 04/17/18 05:01 Last Admin: 04/16/18 21:14 Dose: 70 mls/hr Metoprolol Tartrate (Lopressor) 25 mg PO BID [facility] Last Admin: 04/16/18 17:25 Dose: 25 mg Ranolazine (Ranexa) 500 mg PO BID [facility] Last Admin: 04/16/18 17:24 Dose: 500 mg Rosuvastatin Calcium (Crestor) 5 mg PO HS [facility] Last Admin: 04/16/18 21:10 Dose: 5 mg - Labs Labs: 04/16/18 07:10 04/16/18 07:10 PT 11.7 SECONDS (9.7-12.2) 04/16/18 07:10 INR 1.1 04/16/18 07:10 APTT 34 SECONDS (21-34) 04/13/18 16:09
--- NOTE | 2018-04-17 07:32 | CP.PCM.PN ---
<KennyRebecca juarez - Last Filed: 04/17/18 13:41> Subjective - Date & Time of Evaluation Date of Evaluation: 04/17/18 Time of Evaluation: 07:56 - Subjective Subjective: PGY 3 Cardiology Note- Dr. Figueredo's service Patient seen and examined in no apparent acute distress. Patient admits to some chest discomfort with palpation. She admits to tolerating a diet. She is able to ambulate without difficulty. Objective - Vital Signs/Intake and Output Vital Signs (last 24 hours): Temp Pulse Resp BP Pulse Ox 97.8 F 62 20 131/65 95 04/17/18 04:05 04/17/18 04:05 04/17/18 04:05 04/17/18 04:05 04/17/18 04:05 - Medications Medications: Current Medications Amlodipine Besylate (Norvasc) 10 mg PO DAILY [facility] Last Admin: 04/16/18 09:44 Dose: Not Given Aspirin (Ecotrin) 81 mg PO DAILY [facility] Last Admin: 04/16/18 09:42 Dose: Not Given Clopidogrel Bisulfate (Plavix) 75 mg PO DAILY [facility] Last Admin: 04/16/18 17:24 Dose: 75 mg Heparin Sodium (Porcine) (Heparin) 5,000 units SC Q12 [facility] Last Admin: 04/16/18 21:10 Dose: 5,000 units Metoprolol Tartrate (Lopressor) 25 mg PO BID [facility] Last Admin: 04/16/18 17:25 Dose: 25 mg Ranolazine (Ranexa) 500 mg PO BID [facility] Last Admin: 04/16/18 17:24 Dose: 500 mg Rosuvastatin Calcium (Crestor) 5 mg PO HS [facility] Last Admin: 04/16/18 21:10 Dose: 5 mg - Labs Labs: 04/16/18 07:10 04/16/18 07:10 PT 11.7 SECONDS (9.7-12.2) 04/16/18 07:10 INR 1.1 04/16/18 07:10 APTT 34 SECONDS (21-34) 04/13/18 16:09 - Constitutional Appears: Non-toxic, No Acute Distress - Head Exam Head Exam: ATRAUMATIC, NORMAL INSPECTION - Eye Exam Eye Exam: EOMI, Normal appearance, PERRL Pupil Exam: NORMAL ACCOMODATION - ENT Exam ENT Exam: Mucous Membranes Moist - Neck Exam Neck Exam: Full ROM - Respiratory Exam Respiratory Exam: NORMAL BREATHING PATTERN. absent: Wheezes - Cardiovascular Exam Cardiovascular Exam: +S1, +S2 - Extremities Exam Extremities Exam: Full ROM, Normal Capillary Refill - Back Exam Back Exam: Full ROM, NORMAL INSPECTION - Neurological Exam Neurological Exam: Alert, Awake, Oriented x3 - Psychiatric Exam Psychiatric exam: Normal Affect, Normal Mood - Skin Skin Exam: Dry, Normal Color, Warm Assessment and Plan (1) Unstable angina Assessment & Plan: Patient s/p cardiac cath 04/16 Findings as noted: 1. L Main: Patent 2. LAD: Proximal 70-80% stenosis, Distal 40-50% stenosis 3. L Circumflex: Distal 50% 4. RCA: Distal 40% stenosis 5. LV EF: 55% Patient to be scheduled for LAD PCI once renal function stable. Hydration therapy. Monitor renal function. Continue Metoprolol, Crestor and ASA 81mg at this time. On Ranexa as well. Status: Acute (2) CHRISTOPHE (acute kidney injury) Assessment & Plan: Elevated Creatinine. Higher than baseline. Hydration therapy for now. Monitor renal function. Once improved- considerations for PCI Status: Acute (3) HTN (hypertension) Assessment & Plan: Norvasc 10 mg PO daily , On Metoprolol 25 mg PO BID. Status: Chronic (4) Prophylactic measure Assessment & Plan: Heparin SC Q12 No GI prophylaxis at this time Status: Acute <Antonio Figuerdeo - Last Filed: 04/18/18 06:36> Objective - Vital Signs/Intake and Output Vital Signs (last 24 hours): Temp Pulse Resp BP Pulse Ox 97.8 F 62 20 143/62 95 04/18/18 04:00 04/18/18 04:06 04/18/18 04:00 04/18/18 04:00 04/18/18 04:00 - Medications Medications: Current Medications Amlodipine Besylate (Norvasc) 10 mg PO DAILY [facility] Last Admin: 04/17/18 09:23 Dose: 10 mg Aspirin (Ecotrin) 81 mg PO DAILY [facility] Last Admin: 04/17/18 09:23 Dose: 81 mg Clopidogrel Bisulfate (Plavix) 75 mg PO DAILY [facility] Last Admin: 04/17/18 09:23 Dose: 75 mg Heparin Sodium (Porcine) (Heparin) 5,000 units SC Q12 [facility] Last Admin: 04/17/18 21:29 Dose: 5,000 units Metoprolol Tartrate (Lopressor) 25 mg PO BID [facility] Last Admin: 04/17/18 17:44 Dose: 25 mg Ranolazine (Ranexa) 500 mg PO BID [facility] Last Admin: 04/17/18 17:44 Dose: 500 mg Rosuvastatin Calcium (Crestor) 5 mg PO [facility] Last Admin: 04/17/18 21:29 Dose: 5 mg - Labs Labs: 04/16/18 07:10 04/17/18 11:18 PT 11.7 SECONDS (9.7-12.2) 04/16/18 07:10 INR 1.1 04/16/18 07:10 APTT 34 SECONDS (21-34) 04/13/18 16:09 Assessment and Plan - Assessment and Plan (Free Text) Assessment: Patient seen and evaluated personally by me For LAD PCI at [place] on Sunday/Sunday
--- NOTE | 2018-04-17 07:59 | CP.PCM.PN ---
Subjective - Date & Time of Evaluation Date of Evaluation: 04/17/18 Time of Evaluation: 07:46 - Subjective Subjective: Pt mild chest pain but no SOB, no n/v, no diarrhea Cath report noted; 70 & % greatest stenosis Objective - Vital Signs/Intake and Output Vital Signs (last 24 hours): Temp Pulse Resp BP Pulse Ox 97.8 F 53 L 20 131/65 95 04/17/18 04:05 04/17/18 07:42 04/17/18 04:05 04/17/18 04:05 04/17/18 04:05 - Medications Medications: Current Medications Amlodipine Besylate (Norvasc) 10 mg PO DAILY [facility] Last Admin: 04/16/18 09:44 Dose: Not Given Aspirin (Ecotrin) 81 mg PO DAILY [facility] Last Admin: 04/16/18 09:42 Dose: Not Given Clopidogrel Bisulfate (Plavix) 75 mg PO DAILY [facility] Last Admin: 04/16/18 17:24 Dose: 75 mg Heparin Sodium (Porcine) (Heparin) 5,000 units SC Q12 [facility] Last Admin: 04/16/18 21:10 Dose: 5,000 units Metoprolol Tartrate (Lopressor) 25 mg PO BID [facility] Last Admin: 04/16/18 17:25 Dose: 25 mg Ranolazine (Ranexa) 500 mg PO BID [facility] Last Admin: 04/16/18 17:24 Dose: 500 mg Rosuvastatin Calcium (Crestor) 5 mg PO HS [facility] Last Admin: 04/16/18 21:10 Dose: 5 mg - Labs Labs: 04/16/18 07:10 04/16/18 07:10 PT 11.7 SECONDS (9.7-12.2) 04/16/18 07:10 INR 1.1 04/16/18 07:10 APTT 34 SECONDS (21-34) 04/13/18 16:09 - Constitutional Appears: No Acute Distress - Eye Exam Eye Exam: Normal appearance - ENT Exam ENT Exam: Mucous Membranes Moist - Neck Exam Neck Exam: Full ROM. absent: Lymphadenopathy, Thyromegaly - Respiratory Exam Respiratory Exam: Clear to Ausculation Bilateral. absent: Rales, Rhonchi, Wheezes - Cardiovascular Exam Cardiovascular Exam: REGULAR RHYTHM, +S1, +S2. absent: Gallop, JVD - GI/Abdominal Exam GI & Abdominal Exam: Soft. absent: Tenderness, Normal Bowel Sounds - Extremities Exam Extremities Exam: Full ROM, Normal Capillary Refill. absent: Calf Tenderness, Pedal Edema Assessment and Plan - Assessment and Plan (Free Text) Assessment: CAD; CKD, HTN Cont meds/ slow hydrtion Recheck labs
[2018-04-17] MEDS: Ranolazine 500 mg Extended Release Tablets PO SCH ×2 (09:23→17:44)
--- NOTE | 2018-04-17 11:33 | US ---
Date of service: 04/17/2018 PROCEDURE: Ultrasound of the Kidneys HISTORY: CHRISTOPHE COMPARISON: None available. TECHNIQUE: Grayscale imaging was performed. FINDINGS: RIGHT KIDNEY: Measures: 8.6 cm. Normal in size, contour with diffuse increased echogenicity. No stone, solid mass lesion or hydronephrosis visualized. LEFT KIDNEY: Measures: 9.2 cm. Normal in size, contour with diffuse increased echogenicity. No stone, solid mass lesion or hydronephrosis visualized. OTHER FINDINGS: None. IMPRESSION: Chronic renal parenchymal disease. No hydronephrosis.
[2018-04-17 11:43] LABS: CALCIUM 9.5 mg/dl (8.6-10.4)
--- NOTE | 2018-04-17 14:31 | CP.PCM.CON ---
History of Present Illness - History of Present Illness History of Present Illness: renal consult for ckd 77 yo female, presents with acute coronary syndrome, history of HTN. S/p cardiac cath yesterday with 70% stenosis of coronary artery. Stent planned. Pt noted to have creatinine of 1.8-2.Pt denies previous history of renal disease. No change in urine stream. No NSAIDS. Unclear if on BRIE or ARB. Renal US consistent with chronic kidney disease. Urine negative for blood or protein. No family history of renal disease. Independent in ADL. Review of Systems - Constitutional Constitutional: absent: Fatigue, Fever - EENT Nose/Mouth/Throat: absent: Nasal Congestion, Nasal Discharge - Cardiovascular Cardiovascular: Chest Pain. absent: Leg Edema - Gastrointestinal Gastrointestinal: absent: Abdominal Pain, Bloating - Genitourinary Genitourinary: absent: Change in Urinary Stream, Difficulty Urinating - Musculoskeletal Musculoskeletal: absent: Abnormal Gait, Arthralgias - Neurological Neurological: absent: Abnormal Gait, Headaches - Endocrine Endocrine: absent: Polydipsia, Polyphagia Past Patient History - Infectious Disease Hx of Infectious Diseases: None - Past Medical History & Family History Past Medical History?: Yes - Past Social History Smoking Status: Never Smoked - CARDIAC Hx Congestive Heart Failure: Yes Hx Hypertension: Yes - PULMONARY Hx Asthma: Yes - NEUROLOGICAL Hx Neurological Disorder: No - HEENT Hx Cataracts: Yes (both eyes ) - RENAL Hx Chronic Kidney Disease: No - ENDOCRINE/METABOLIC Hx Endocrine Disorders: No - HEMATOLOGICAL/ONCOLOGICAL Hx Blood Disorders: No - INTEGUMENTARY Hx Dermatological Problems: No - MUSCULOSKELETAL/RHEUMATOLOGICAL Hx Arthritis: Yes Hx Falls: No - GASTROINTESTINAL Hx Constipation: Yes (2days) - GENITOURINARY/GYNECOLOGICAL Hx Genitourinary Disorders: No - PSYCHIATRIC Hx Substance Use: No - SURGICAL HISTORY Other/Comment: right leg Vein stripping years ago - ANESTHESIA Hx Anesthesia: No Meds Allergies/Adverse Reactions: Allergies Allergy/AdvReac Type Severity Reaction Status Date / Time No Known Allergies Allergy Verified 04/13/18 15:24 - Medications Medications: Current Medications Amlodipine Besylate (Norvasc) 10 mg PO DAILY [facility] Last Admin: 04/17/18 09:23 Dose: 10 mg Aspirin (Ecotrin) 81 mg PO DAILY [facility] Last Admin: 04/17/18 09:23 Dose: 81 mg Clopidogrel Bisulfate (Plavix) 75 mg PO DAILY [facility] Last Admin: 04/17/18 09:23 Dose: 75 mg Heparin Sodium (Porcine) (Heparin) 5,000 units SC Q12 [facility] Last Admin: 04/17/18 09:23 Dose: 5,000 units Metoprolol Tartrate (Lopressor) 25 mg PO BID [facility] Last Admin: 04/17/18 09:23 Dose: 25 mg Ranolazine (Ranexa) 500 mg PO BID [facility] Last Admin: 04/17/18 09:23 Dose: 500 mg Rosuvastatin Calcium (Crestor) 5 mg PO HS [facility] Last Admin: 04/16/18 21:10 Dose: 5 mg Physical Exam - Constitutional Appears: Well, Non-toxic - Head Exam Head Exam: ATRAUMATIC, NORMAL INSPECTION - Eye Exam Eye Exam: EOMI, Normal appearance - ENT Exam ENT Exam: Mucous Membranes Moist - Neck Exam Neck exam: Positive for: Full Rom. Negative for: Lymphadenopathy - Respiratory Exam Respiratory Exam: Clear to Auscultation Bilateral. absent: Accessory Muscle Use - Cardiovascular Exam Cardiovascular Exam: REGULAR RHYTHM. absent: Rubs - GI/Abdominal Exam GI & Abdominal Exam: Distended, Soft - Extremities Exam Extremities exam: Negative for: pedal edema - Psychiatric Exam Psychiatric exam: Normal Affect, Normal Mood Results - Vital Signs Recent Vital Signs: Last Vital Signs Temp 97.5 F L 04/17/18 07:25 Pulse 51 L 04/17/18 11:59 Resp 20 04/17/18 07:25 BP 142/81 04/17/18 09:23 Pulse Ox 95 04/17/18 10:26 - Labs Result Diagrams: 04/16/18 07:10 04/17/18 11:18 Labs: Laboratory Results - last 24 hr 04/17/18 11:18 Sodium 144 Potassium 3.6 Chloride 106 Carbon Dioxide 24 Anion Gap 17 BUN 35 H Creatinine 1.8 H Est GFR ( Amer) 33 Est GFR (Non-Af Amer) 27 Random Glucose 105 Calcium 9.5 Assessment & Plan - Assessment and Plan (Free Text) Assessment: ckd 3, likely related to htn htn cad continue gentle hydration assess function before progressing to repeat contrast procedure
[2018-04-18 07:50] LABS: BASO % 0.5 % (0.0-2.0); EOS # 0.4 K/uL (0.0-0.7); EOS % 8.2 % (0.0-4.0); HEMOGLOBIN 10.6 g/dL (11.0-16.0); LYMPH # 1.5 K/uL (1.0-4.3); LYMPH % 28.9 % (20.0-40.0); MEAN CELL VOLUME 94.4 fL (81.0-99.0); MEAN CORPUSCULAR HGB CONC 34.9 g/dL (33.0-37.0); MEAN PLATELET VOLUME 9.6 fL (7.2-11.7); MONO # 0.5 K/uL (0.0-0.8); MONO % 8.7 % (0.0-10.0); NEUT # 2.8 K/uL (1.8-7.0); NEUT % 53.7 % (50.0-75.0); RBC 3.21 Mil/uL (3.80-5.20); RED CELL DISTRIBUTION WIDTH 12.7 % (11.5-14.5); WHITE BLOOD COUNT 5.2 K/uL (4.8-10.8)
[2018-04-18 07:55] LABS: ALB/GLOB RATIO 1.3 (1.0-2.1); ALBUMIN 3.6 g/dL (3.5-5.0); CALCIUM 9.2 mg/dl (8.6-10.4)
--- NOTE | 2018-04-18 09:20 | CP.PCM.PN ---
Subjective - Date & Time of Evaluation Date of Evaluation: 04/18/18 Time of Evaluation: 09:17 - Subjective Subjective: s/p cardiac cath 04/16- results noted creat stable post cath- 1.6 today Off IV fluids now feels better renal US- showed smallish, echogenic kidneys c/w CKD BP labile no new complaints- no dyspnea, CP, n, v, fevers, chills Objective - Vital Signs/Intake and Output Vital Signs (last 24 hours): Temp Pulse Resp BP Pulse Ox 97.2 F L 60 18 175/77 H 98 04/18/18 08:00 04/18/18 08:00 04/18/18 08:00 04/18/18 08:00 04/18/18 08:00 - Medications Medications: Current Medications Amlodipine Besylate (Norvasc) 10 mg PO DAILY [facility] Last Admin: 04/17/18 09:23 Dose: 10 mg Aspirin (Ecotrin) 81 mg PO DAILY [facility] Last Admin: 04/17/18 09:23 Dose: 81 mg Clopidogrel Bisulfate (Plavix) 75 mg PO DAILY [facility] Last Admin: 04/17/18 09:23 Dose: 75 mg Heparin Sodium (Porcine) (Heparin) 5,000 units SC Q12 [facility] Last Admin: 04/17/18 21:29 Dose: 5,000 units Metoprolol Tartrate (Lopressor) 25 mg PO BID [facility] Last Admin: 04/17/18 17:44 Dose: 25 mg Ranolazine (Ranexa) 500 mg PO BID [facility] Last Admin: 04/17/18 17:44 Dose: 500 mg Rosuvastatin Calcium (Crestor) 5 mg PO HS [facility] Last Admin: 04/17/18 21:29 Dose: 5 mg - Labs Labs: 04/18/18 07:35 04/18/18 07:35 PT 11.7 SECONDS (9.7-12.2) 04/16/18 07:10 INR 1.1 04/16/18 07:10 APTT 34 SECONDS (21-34) 04/13/18 16:09 - Constitutional Appears: No Acute Distress, Chronically Ill - Head Exam Head Exam: ATRAUMATIC, NORMAL INSPECTION - Eye Exam Eye Exam: EOMI, Normal appearance - Neck Exam Neck Exam: Full ROM, Normal Inspection - Respiratory Exam Respiratory Exam: Clear to Ausculation Bilateral, NORMAL BREATHING PATTERN - Cardiovascular Exam Cardiovascular Exam: REGULAR RHYTHM, +S1 - GI/Abdominal Exam GI & Abdominal Exam: Soft. absent: Tenderness - Extremities Exam Extremities Exam: Normal Inspection. absent: Tenderness - Neurological Exam Neurological Exam: Alert, CN II-XII Intact - Skin Skin Exam: Dry, Warm Assessment and Plan (1) CKD (chronic kidney disease) stage 3, GFR 30-59 ml/min Status: Acute (2) CAD (coronary artery disease) Status: Acute (3) HTN (hypertension) Status: Chronic - Assessment and Plan (Free Text) Plan: renal function stable medical management CAD follow renal function, BP closely- can add hydralazine if BP still elevated persistently
[2018-04-18] MEDS: Ranolazine 500 mg Extended Release Tablets PO SCH ×2 (10:46→17:38)
--- NOTE | 2018-04-18 17:09 | CP.PCM.PN ---
Subjective - Date & Time of Evaluation Date of Evaluation: 04/18/18 Time of Evaluation: 17:06 - Subjective Subjective: S: Feels better. NO chestpain. Objective - Vital Signs/Intake and Output Vital Signs (last 24 hours): Temp Pulse Resp BP Pulse Ox 97.9 F 68 20 134/65 95 04/18/18 15:00 04/18/18 16:00 04/18/18 15:00 04/18/18 15:00 04/18/18 15:00 Intake and Output: 04/18/18 04/18/18 06:59 18:59 Intake Total 480 Balance 480 - Medications Medications: Current Medications Amlodipine Besylate (Norvasc) 10 mg PO DAILY [facility] Last Admin: 04/18/18 10:49 Dose: 10 mg Aspirin (Ecotrin) 81 mg PO DAILY [facility] Last Admin: 04/18/18 10:46 Dose: 81 mg Clopidogrel Bisulfate (Plavix) 75 mg PO DAILY [facility] Last Admin: 04/18/18 10:46 Dose: 75 mg Heparin Sodium (Porcine) (Heparin) 5,000 units SC Q12 [facility] Last Admin: 04/18/18 10:49 Dose: 5,000 units Metoprolol Tartrate (Lopressor) 25 mg PO BID [facility] Last Admin: 04/18/18 10:46 Dose: 25 mg Ranolazine (Ranexa) 500 mg PO BID [facility] Last Admin: 04/18/18 10:46 Dose: 500 mg Rosuvastatin Calcium (Crestor) 5 mg PO HS [facility] Last Admin: 04/17/18 21:29 Dose: 5 mg - Labs Labs: 04/18/18 07:35 04/18/18 07:35 PT 11.7 SECONDS (9.7-12.2) 04/16/18 07:10 INR 1.1 04/16/18 07:10 APTT 34 SECONDS (21-34) 04/13/18 16:09 - Constitutional Appears: No Acute Distress - Head Exam Head Exam: NORMAL INSPECTION - Eye Exam Eye Exam: Normal appearance - ENT Exam ENT Exam: Normal Exam - Neck Exam Neck Exam: Normal Inspection - Respiratory Exam Respiratory Exam: NORMAL BREATHING PATTERN - Cardiovascular Exam Cardiovascular Exam: REGULAR RHYTHM - GI/Abdominal Exam GI & Abdominal Exam: Soft - Rectal Exam Rectal Exam: Deferred - Extremities Exam Extremities Exam: Normal Inspection Assessment and Plan (1) Chest pain Status: Acute (2) HTN (hypertension) Status: Chronic (3) Renal insufficiency Status: Chronic (4) Unstable angina Status: Acute (5) CKD (chronic kidney disease) stage 3, GFR 30-59 ml/min Status: Acute - Assessment and Plan (Free Text) Assessment: A/P: Continue medications
--- NOTE | 2018-04-18 22:08 | CP.PCM.PN ---
Subjective - Date & Time of Evaluation Date of Evaluation: 04/18/18 Time of Evaluation: 18:40 - Subjective Subjective: Patient for PCI of LAD tomorrow Denies chest pain and dyspnea Physical Examination - Constitutional Appears: Non-toxic, No Acute Distress - Head Exam Head Exam: ATRAUMATIC, NORMAL INSPECTION - Eye Exam Eye Exam: EOMI, Normal appearance, PERRL Pupil Exam: NORMAL ACCOMODATION - ENT Exam ENT Exam: Mucous Membranes Moist - Neck Exam Neck Exam: Full ROM - Respiratory Exam Respiratory Exam: NORMAL BREATHING PATTERN. absent: Wheezes - Cardiovascular Exam Cardiovascular Exam: +S1, +S2 - Extremities Exam Extremities Exam: Full ROM, Normal Capillary Refill - Back Exam Back Exam: Full ROM, NORMAL INSPECTION - Neurological Exam Neurological Exam: Alert, Awake, Oriented x3 - Psychiatric Exam Psychiatric exam: Normal Affect, Normal Mood - Skin Skin Exam: Dry, Normal Color, Warm Objective - Vital Signs/Intake and Output Vital Signs (last 24 hours): Temp Pulse Resp BP Pulse Ox 97.9 F 68 20 134/65 95 04/18/18 15:00 04/18/18 16:00 04/18/18 15:00 04/18/18 17:39 04/18/18 15:00 Intake and Output: 04/18/18 04/19/18 18:59 06:59 Intake Total 480 Balance 480 - Medications Medications: Current Medications Amlodipine Besylate (Norvasc) 10 mg PO DAILY [facility] Last Admin: 04/18/18 10:49 Dose: 10 mg Aspirin (Ecotrin) 81 mg PO DAILY [facility] Last Admin: 04/18/18 10:46 Dose: 81 mg Clopidogrel Bisulfate (Plavix) 75 mg PO DAILY [facility] Last Admin: 04/18/18 10:46 Dose: 75 mg Heparin Sodium (Porcine) (Heparin) 5,000 units SC Q12 [facility] Last Admin: 04/18/18 21:32 Dose: 5,000 units Metoprolol Tartrate (Lopressor) 25 mg PO BID [facility] Last Admin: 04/18/18 17:39 Dose: 25 mg Ranolazine (Ranexa) 500 mg PO BID [facility] Last Admin: 04/18/18 17:38 Dose: 500 mg Rosuvastatin Calcium (Crestor) 5 mg PO HS [facility] Last Admin: 04/18/18 21:32 Dose: 5 mg - Labs Labs: 04/18/18 07:35 04/18/18 07:35 PT 11.7 SECONDS (9.7-12.2) 04/16/18 07:10 INR 1.1 04/16/18 07:10 APTT 34 SECONDS (21-34) 04/13/18 16:09 Assessment and Plan - Assessment and Plan (Free Text) Assessment: (1) Unstable angina Assessment & Plan: Patient s/p cardiac cath 04/16 Findings as noted: 1. L Main: Patent 2. LAD: Proximal 70-80% stenosis, Distal 40-50% stenosis 3. L Circumflex: Distal 50% 4. RCA: Distal 40% stenosis 5. LV EF: 55% Patient to be scheduled for LAD PCI once renal function stable. Hydration therapy. Monitor renal function. Continue Metoprolol, Crestor and ASA 81mg at this time. On Ranexa as well. Status: Acute (2) CHRISTOPHE (acute kidney injury) Assessment & Plan: Elevated Creatinine. Higher than baseline. Hydration therapy for now. Monitor renal function. Once improved- considerations for PCI Status: Acute (3) HTN (hypertension) Assessment & Plan: Norvasc 10 mg PO daily , On Metoprolol 25 mg PO BID. Status: Chronic (4) Prophylactic measure Assessment & Plan: Heparin SC Q12 No GI prophylaxis at this time Status: Acute
--- NOTE | 2018-04-19 08:29 | CP.PCM.PN ---
Subjective - Date & Time of Evaluation Date of Evaluation: 04/19/18 Time of Evaluation: 08:27 - Subjective Subjective: C/o mild dyspnea; otherwise feels ok Creat stable at 1.6 post cardiac cath HTN controlled Renal US consistent with CKD Await transfewr for LAD PCI possibly today Objective - Vital Signs/Intake and Output Vital Signs (last 24 hours): Temp Pulse Resp BP Pulse Ox 98.4 F 58 L 20 159/69 H 94 L 04/19/18 01:00 04/19/18 07:16 04/19/18 01:00 04/19/18 07:07 04/19/18 01:00 - Medications Medications: Current Medications Amlodipine Besylate (Norvasc) 10 mg PO DAILY [facility] Last Admin: 04/19/18 07:07 Dose: 10 mg Aspirin (Ecotrin) 81 mg PO DAILY [facility] Last Admin: 04/19/18 07:07 Dose: 81 mg Clopidogrel Bisulfate (Plavix) 75 mg PO DAILY [facility] Last Admin: 04/19/18 07:07 Dose: 75 mg Metoprolol Tartrate (Lopressor) 25 mg PO BID [facility] Last Admin: 04/19/18 07:07 Dose: 25 mg Ranolazine (Ranexa) 500 mg PO BID [facility] Last Admin: 04/18/18 17:38 Dose: 500 mg Rosuvastatin Calcium (Crestor) 5 mg PO HS [facility] Last Admin: 04/18/18 21:32 Dose: 5 mg - Labs Labs: 04/18/18 07:35 04/18/18 07:35 PT 11.7 SECONDS (9.7-12.2) 04/16/18 07:10 INR 1.1 04/16/18 07:10 APTT 34 SECONDS (21-34) 04/13/18 16:09 - Constitutional Appears: No Acute Distress, Chronically Ill - Head Exam Head Exam: ATRAUMATIC, NORMAL INSPECTION - Eye Exam Eye Exam: EOMI, Normal appearance - Neck Exam Neck Exam: Normal Inspection. absent: Tenderness - Respiratory Exam Respiratory Exam: Clear to Ausculation Bilateral, NORMAL BREATHING PATTERN - Cardiovascular Exam Cardiovascular Exam: REGULAR RHYTHM, +S1 - GI/Abdominal Exam GI & Abdominal Exam: Soft. absent: Tenderness - Extremities Exam Extremities Exam: Normal Inspection. absent: Tenderness - Neurological Exam Neurological Exam: Alert, CN II-XII Intact - Skin Skin Exam: Dry, Warm Assessment and Plan (1) CKD (chronic kidney disease) stage 3, GFR 30-59 ml/min Status: Acute (2) CAD (coronary artery disease) Status: Acute (3) HTN (hypertension) Status: Chronic - Assessment and Plan (Free Text) Plan: monitor renal function Same BP meds PCI LAD pending
[2018-04-19] MEDS: Ranolazine 500 mg Extended Release Tablets PO SCH ×2 (10:20→18:18)
--- NOTE | 2018-04-19 11:47 | CP.PCM.PN ---
Subjective - Date & Time of Evaluation Date of Evaluation: 04/19/18 Time of Evaluation: 11:45 - Subjective Subjective: Patient s/p Successful PCI of Proximal LAD with Drug Eluting stent Plavix 75 daily for 1 year ASA, Statins for life Adjust b blockers heart rate low side Monitor renal function IV hydration Ambulate after 4 pm today Objective - Vital Signs/Intake and Output Vital Signs (last 24 hours): Temp Pulse Resp BP Pulse Ox 98.4 F 58 L 20 159/69 H 94 L 04/19/18 01:00 04/19/18 07:16 04/19/18 01:00 04/19/18 07:07 04/19/18 01:00 - Medications Medications: Current Medications Amlodipine Besylate (Norvasc) 10 mg PO DAILY [facility] Last Admin: 04/19/18 10:17 Dose: Not Given Aspirin (Ecotrin) 81 mg PO DAILY [facility] Last Admin: 04/19/18 10:16 Dose: Not Given Clopidogrel Bisulfate (Plavix) 75 mg PO DAILY [facility] Last Admin: 04/19/18 10:20 Dose: Not Given Metoprolol Tartrate (Lopressor) 25 mg PO BID [facility] Last Admin: 04/19/18 10:17 Dose: Not Given Ranolazine (Ranexa) 500 mg PO BID [facility] Last Admin: 04/19/18 10:20 Dose: Not Given Rosuvastatin Calcium (Crestor) 5 mg PO HS [facility] Last Admin: 04/18/18 21:32 Dose: 5 mg - Labs Labs: 04/18/18 07:35 04/18/18 07:35 PT 11.7 SECONDS (9.7-12.2) 04/16/18 07:10 INR 1.1 04/16/18 07:10 APTT 34 SECONDS (21-34) 04/13/18 16:09
--- NOTE | 2018-04-19 17:42 | CP.PCM.PN ---
Subjective - Date & Time of Evaluation Date of Evaluation: 04/19/18 Time of Evaluation: 17:40 - Subjective Subjective: S: Feels usman. s/p PCI Objective - Vital Signs/Intake and Output Vital Signs (last 24 hours): Temp Pulse Resp BP Pulse Ox 98.4 F 58 L 20 159/69 H 94 L 04/19/18 01:00 04/19/18 07:16 04/19/18 01:00 04/19/18 07:07 04/19/18 01:00 - Medications Medications: Current Medications Amlodipine Besylate (Norvasc) 10 mg PO DAILY [facility] Last Admin: 04/19/18 10:17 Dose: Not Given Aspirin (Ecotrin) 81 mg PO DAILY [facility] Last Admin: 04/19/18 10:16 Dose: Not Given Clopidogrel Bisulfate (Plavix) 75 mg PO DAILY [facility] Last Admin: 04/19/18 10:20 Dose: Not Given Metoprolol Tartrate (Lopressor) 25 mg PO BID [facility] Last Admin: 04/19/18 10:17 Dose: Not Given Ranolazine (Ranexa) 500 mg PO BID [facility] Last Admin: 04/19/18 10:20 Dose: Not Given Rosuvastatin Calcium (Crestor) 5 mg PO HS [facility] Last Admin: 04/18/18 21:32 Dose: 5 mg - Labs Labs: 04/18/18 07:35 04/18/18 07:35 PT 11.7 SECONDS (9.7-12.2) 04/16/18 07:10 INR 1.1 04/16/18 07:10 APTT 34 SECONDS (21-34) 04/13/18 16:09 - Constitutional Appears: No Acute Distress - Head Exam Head Exam: NORMAL INSPECTION - Eye Exam Eye Exam: Normal appearance - Neck Exam Neck Exam: Normal Inspection - Respiratory Exam Respiratory Exam: NORMAL BREATHING PATTERN - Cardiovascular Exam Cardiovascular Exam: REGULAR RHYTHM - GI/Abdominal Exam GI & Abdominal Exam: Soft - Rectal Exam Rectal Exam: Deferred - Neurological Exam Neurological Exam: Alert - Psychiatric Exam Psychiatric exam: Normal Affect Assessment and Plan (1) HTN (hypertension) Status: Acute (2) Renal insufficiency Status: Chronic (3) Unstable angina Status: Acute (4) CKD (chronic kidney disease) stage 3, GFR 30-59 ml/min Status: Acute - Assessment and Plan (Free Text) Assessment: A/P: Coninue medications
--- NOTE | 2018-04-20 06:56 | CP.PCM.DIS ---
Provider - Provider Date of Admission: 04/16/18 16:30 Attending physician: Duane Jaquez MD Time Spent in preparation of Discharge (in minutes): 30 Diagnosis - Discharge Diagnosis (1) HTN (hypertension) Status: Chronic (2) Renal insufficiency Status: Resolved (3) Unstable angina Status: Acute (4) CKD (chronic kidney disease) stage 3, GFR 30-59 ml/min Status: Acute Hospital Course - Lab Results Lab Results: Most Recent Lab Values WBC 5.2 K/uL (4.8-10.8) 04/18/18 07:35 RBC 3.21 Mil/uL (3.80-5.20) L 04/18/18 07:35 Hgb 10.6 g/dL (11.0-16.0) L 04/18/18 07:35 Hct 30.3 % (34.0-47.0) L 04/18/18 07:35 MCV 94.4 fL (81.0-99.0) 04/18/18 07:35 MCH 33.0 pg (27.0-31.0) H 04/18/18 07:35 MCHC 34.9 g/dL (33.0-37.0) 04/18/18 07:35 RDW 12.7 % (11.5-14.5) 04/18/18 07:35 Plt Count 118 K/uL (130-400) L 04/18/18 07:35 MPV 9.6 fL (7.2-11.7) 04/18/18 07:35 Neut % (Auto) 53.7 % (50.0-75.0) 04/18/18 07:35 Lymph % (Auto) 28.9 % (20.0-40.0) 04/18/18 07:35 [place] % (Auto) 8.7 % (0.0-10.0) 04/18/18 07:35 Eos % (Auto) 8.2 % (0.0-4.0) H 04/18/18 07:35 Baso % (Auto) 0.5 % (0.0-2.0) 04/18/18 07:35 Neut # (Auto) 2.8 K/uL (1.8-7.0) 04/18/18 07:35 Lymph # (Auto) 1.5 K/uL (1.0-4.3) 04/18/18 07:35 [place] # (Auto) 0.5 K/uL (0.0-0.8) 04/18/18 07:35 Eos # (Auto) 0.4 K/uL (0.0-0.7) 04/18/18 07:35 Baso # (Auto) 0.0 K/uL (0.0-0.2) 04/18/18 07:35 PT 11.7 SECONDS (9.7-12.2) 04/16/18 07:10 INR 1.1 04/16/18 07:10 APTT 34 SECONDS (21-34) 04/13/18 16:09 Sodium 142 mmol/L (132-148) 04/18/18 07:35 Potassium 4.2 mmol/L (3.6-5.2) 04/18/18 07:35 Chloride 109 mmol/L (98-107) H 04/18/18 07:35 Carbon Dioxide 22 mmol/L (22-30) 04/18/18 07:35 Anion Gap 16 (10-20) 04/18/18 07:35 BUN 32 mg/dL (7-17) H 04/18/18 07:35 Creatinine 1.6 mg/dL (0.7-1.2) H 04/18/18 07:35 Est GFR ( Amer) 38 04/18/18 07:35 Est GFR (Non-Af Amer) 31 04/18/18 07:35 Random Glucose 97 mg/dL (65-105) 04/18/18 07:35 Calcium 9.2 mg/dl (8.6-10.4) 04/18/18 07:35 Total Bilirubin 0.4 mg/dL (0.2-1.3) 04/18/18 07:35 AST 37 U/L (14-36) H D 04/18/18 07:35 ALT 31 U/L (9-52) 04/18/18 07:35 Alkaline Phosphatase 68 U/L (38-126) 04/18/18 07:35 Total Creatine Kinase 93 U/L (30-135) 04/13/18 16:09 CK-MB (Mass) 0.87 ng/mL (0.0-3.38) 04/13/18 16:09 Troponin I 0.0200 ng/mL (0.00-0.120) 04/14/18 08:49 NT-Pro-B Natriuret Pep 304 pg/mL (0-900) 04/13/18 16:09 Total Protein 6.3 g/dL (6.3-8.3) 04/18/18 07:35 Albumin 3.6 g/dL (3.5-5.0) 04/18/18 07:35 Globulin 2.7 gm/dL (2.2-3.9) 04/18/18 07:35 Albumin/Globulin Ratio 1.3 (1.0-2.1) 04/18/18 07:35 Triglycerides 296 mg/dL (0-149) H 04/14/18 08:49 Cholesterol 175 mg/dL (0-199) 04/14/18 08:49 LDL Cholesterol Direct 76 mg/dL (0-129) 04/14/18 08:49 HDL Cholesterol 27 mg/dL (30-70) L 04/14/18 08:49 Lipase 360 U/L (23-300) H 04/13/18 16:09 TSH 3rd Generation 2.50 mIU/L (0.46-4.68) 04/14/18 08:49 Urine Color Straw (YELLOW) 04/13/18 17:05 Urine Clarity Clear (Clear) 04/13/18 17:05 Urine pH 5.0 (5.0-8.0) 04/13/18 17:05 Ur Specific [place] 1.005 (1.003-1.030) 04/13/18 17:05 Urine Protein Negative mg/dL (NEGATIVE) 04/13/18 17:05 Urine Glucose (UA) Normal mg/dL (Normal) 04/13/18 17:05 Urine Ketones Negative mg/dL (NEGATIVE) 04/13/18 17:05 Urine Blood Negative (NEGATIVE) 04/13/18 17:05 Urine Nitrate Negative (NEGATIVE) 04/13/18 17:05 Urine Bilirubin Negative (NEGATIVE) 04/13/18 17:05 Urine Urobilinogen Normal mg/dL (0.2-1.0) 04/13/18 17:05 Ur Leukocyte Esterase Neg [place]/uL (Negative) 04/13/18 17:05 Urine WBC (Auto) < 1 /hpf (0-5) 04/13/18 17:05 - Hospital Course Hospital Course: Admitted telemetry. C/o chest pain. Seen by Cardiology Dr. Figueredo s/p cardiac cath, s/p angioplasty. Patient tolerated procedure well. During hospital stay , repeat blood test showed elevated creatinine. Seen by Dr. Laura . IV hydration given. Patient discharge home. - Date & Time of H&P Date of H&P: 04/20/18 Time of H&P: 06:58 Discharge Exam - Head Exam Head Exam: NORMAL INSPECTION - Eye Exam Eye Exam: Normal appearance - ENT Exam ENT Exam: Normal Exam - Neck Exam Neck exam: Normal Inspection - Respiratory Exam Respiratory Exam: NORMAL BREATHING PATTERN - Cardiovascular Exam Cardiovascular Exam: REGULAR RHYTHM - GI/Abdominal Exam GI & Abdominal Exam: Soft - Rectal Exam Rectal Exam: Deferred - Extremities Exam Extremities exam: normal inspection - Neurological Exam Neurological exam: Alert Discharge Plan - Follow Up Plan Condition: STABLE Disposition: HOME/ ROUTINE Instructions: Renal Failure Diet (DC) Clinical Quality Measures - CQM - Stroke Anticoagulation Prescribed for Atrial Flutter, Atrial Fibrillation and History of:: Yes Statin prescribed: Yes - CQM - VTE Did patient receive overlap therapy during hosptialization?: Yes
[2018-04-20 07:57] LABS: HEMOGLOBIN 11.5 g/dL (11.0-16.0); MEAN CELL VOLUME 96.1 fL (81.0-99.0); MEAN CORPUSCULAR HEMOGLOBIN 32.8 pg (27.0-31.0); MEAN CORPUSCULAR HGB CONC 34.2 g/dL (33.0-37.0); MEAN PLATELET VOLUME 10.1 fL (7.2-11.7); RBC 3.5 Mil/uL (3.80-5.20); RED CELL DISTRIBUTION WIDTH 12.7 % (11.5-14.5); WHITE BLOOD COUNT 5.1 K/uL (4.8-10.8)
[2018-04-20 08:14] LABS: CALCIUM 9.4 mg/dl (8.6-10.4)
[2018-04-20 08:34] VITALS: PULSE 57
--- NOTE | 2018-04-20 08:48 | CP.PCM.PN ---
Subjective - Date & Time of Evaluation Date of Evaluation: 04/20/18 Time of Evaluation: 08:45 - Subjective Subjective: Notes reviewed Feels well Tolerated pci well No new complaints Tolerating diet No cp or palp, no sob or cough, no n/v/d 10 point ros negative other than reported above Objective - Vital Signs/Intake and Output Vital Signs (last 24 hours): Temp Pulse Resp BP Pulse Ox 97.7 F 57 L 20 130/71 95 04/19/18 23:25 04/20/18 07:43 04/19/18 23:25 04/19/18 23:25 04/19/18 23:25 Intake and Output: 04/20/18 04/20/18 06:59 18:59 Intake Total 300 Balance 300 - Medications Medications: Current Medications Amlodipine Besylate (Norvasc) 10 mg PO DAILY [facility] Last Admin: 04/19/18 10:17 Dose: Not Given Aspirin (Ecotrin) 81 mg PO DAILY [facility] Last Admin: 04/19/18 10:16 Dose: Not Given Clopidogrel Bisulfate (Plavix) 75 mg PO DAILY [facility] Last Admin: 04/19/18 10:20 Dose: Not Given Metoprolol Tartrate (Lopressor) 25 mg PO BID [facility] Last Admin: 04/19/18 18:18 Dose: 25 mg Ranolazine (Ranexa) 500 mg PO BID [facility] Last Admin: 04/19/18 18:18 Dose: 500 mg Rosuvastatin Calcium (Crestor) 5 mg PO HS [facility] Last Admin: 04/19/18 23:03 Dose: 5 mg - Labs Labs: 04/20/18 07:33 04/20/18 07:33 PT 11.7 SECONDS (9.7-12.2) 04/16/18 07:10 INR 1.1 04/16/18 07:10 APTT 34 SECONDS (21-34) 04/13/18 16:09 - Constitutional Appears: Well, Non-toxic - Head Exam Head Exam: ATRAUMATIC, NORMAL INSPECTION - Eye Exam Eye Exam: EOMI, Normal appearance - ENT Exam ENT Exam: Mucous Membranes Moist, Normal Oropharynx - Neck Exam Neck Exam: absent: Lymphadenopathy, Thyromegaly - Respiratory Exam Respiratory Exam: Clear to Ausculation Bilateral. absent: Rhonchi, Wheezes - Cardiovascular Exam Cardiovascular Exam: REGULAR RHYTHM, +S1, +S2. absent: Rubs - GI/Abdominal Exam GI & Abdominal Exam: Soft, Normal Bowel Sounds - Extremities Exam Extremities Exam: absent: Joint Swelling, Pedal Edema - Neurological Exam Neurological Exam: Alert, Awake, Oriented x3 - Psychiatric Exam Psychiatric exam: Normal Affect, Normal Mood - Skin Skin Exam: Dry, Intact Assessment and Plan (1) CHRISTOPHE (acute kidney injury) Status: Acute (2) CAD (coronary artery disease) Status: Acute (3) CKD (chronic kidney disease) stage 3, GFR 30-59 ml/min Status: Acute (4) HTN (hypertension) Status: Chronic - Assessment and Plan (Free Text) Assessment: Renal function relatively stable post pci Electrolytes acceptable Bp controlled Maintain current meds Plan for d/x noted To follow up as outpatient with repeat chemistry
[2018-04-20 08:59] VITALS: RESP 18; TEMP 98.3; O2SAT 98
[2018-04-20] MEDS: Ranolazine 500 mg Extended Release Tablets PO SCH (10:21)
[2018-04-20 10:23] VITALS: BP 144/75
--- NOTE | 2018-04-21 23:37 | CARDCATH ---
Copied To: Antonio Figueredo MD Attending MD: Antonio Figueredo MD PROCEDURE DATE: 04/16/2018 PROCEDURES: 1. Left heart catheterization. 2. Coronary angiogram. REFERRING PHYSICIAN: Duane Jaquez MD PERFORMING PHYSICIAN: Antonio Figueredo MD CLINICAL INDICATIONS: 1. Unstable angina. 2. Hypertension. 3. Hyperlipidemia. 4. Chronic kidney disease stage III. DESCRIPTION OF PROCEDURE: After informed consent, the patient was prepped and draped in the usual sterile fashion. A 2% lidocaine was given in the right wrist for local anesthesia. Using micropuncture technique, a 6-Ugandan sheath was introduced into right radial artery. A JR4 6-Ugandan diagnostic catheter crossed into left ventricle across the aortic valve. LV end-diastolic pressure was measured. Contrast injected and the LV angiogram was done. The catheter was pulled back across the aortic valve. The gradient across the aortic valve was measured. Then, the same catheter was engaged into the right coronary. Contrast was injected and right coronary angiogram was done. Then, the catheter was exchanged to a 6-Ugandan Idamay catheter. The catheter was engaged into the left main coronary artery. Contrast was injected and left coronary angiogram was done. The patient tolerated the procedure well. Postprocedure, Terumo radial band was applied to the right wrist with excellent hemostasis. Radiological interpretation and radiological supervision of the coronary imaging were done. FINDINGS: 1. Left main coronary artery is patent. 2. Proximal LAD has 80% constant stenosis. Distal LAD has 40% to 50% narrowing. Diagonal branches are patent. 3. Proximal left circumflex is patent and distal left circumflex has 40% narrowing. Obtuse marginal branches are patent. 4. Right coronary artery is dominant. Distal right coronary artery has 40% narrowing. PLV and PDA branches are patent. 5. LV ejection fraction is approximately 40% to 45%. Mild global hypokinesis. EDP is 14. No gradient across the aortic valve. IMPRESSION: 1. Coronary artery disease as described above. 2. Single-vessel significant coronary artery disease. 4. Left anterior descending proximal 70% to 80% stenosis. 5. Nonobstructive right and left circumflex coronary arteries. RECOMMENDATIONS: Recommend LAD intervention. Antonio Figueredo MD [facility] # [id number]
== END 2018-04-20 13:57 | disposition home or self-care (01) | DRG 247 ==
LOC: C.ER 15:07 → C.9E 17:03 → C.6T 18:08 → OBSVTOIN 04-16 16:30
PROVIDERS: ADMIT Internal Medicine; ATTEND Internal Medicine
PROC: 4A023N7 Measurement of Cardiac Sampling and Pressure, Left Heart, Percutaneous Approach (ICD-10-PCS; principal; 2018-04-16)
PROC: B211YZZ Fluoroscopy of Multiple Coronary Arteries using Other Contrast (ICD-10-PCS; 2018-04-16)
PROC: B215YZZ Fluoroscopy of Left Heart using Other Contrast (ICD-10-PCS; 2018-04-16)
PROC: 027034Z Dilation of Coronary Artery, One Artery with Drug-eluting Intraluminal Device, Percutaneous Approach (ICD-10-PCS; 2018-04-19)
DX: I25.110 Atherosclerotic heart disease of native coronary artery with unstable angina pectoris (principal); I13.0 Hypertensive heart and chronic kidney disease with heart failure and stage 1 through stage 4 chronic kidney disease, or unspecified chronic kidney disease; N17.9 Acute kidney failure, unspecified; I50.9 Heart failure, unspecified; N18.3 Chronic kidney disease, stage 3 (moderate); J45.909 Unspecified asthma, uncomplicated